=== PATIENT | female | born 1940 | race Caucasian/White ===

== ENCOUNTER → 2016-08-29 | Outpatient (CLI) | payer MEDICARE, OTHER ==
[~2016-08-29] MED LIST: /MOXI40TA PO; ALB2.5NEB INH; ASPI325T PO; ASPI81CH PO; ASPI81TA7 PO; ATOR1TAB21 PO; CLOP75TA2 PO; COMBAER6 INH; COMBRESP INH; FLUT1SPR2; IPRA2IN INH; IPRASOL4 INH; LOVE1INJ SC; PRAM0.252 PO; PRAV20TA2 PO; PRED10TA2 PO; PROL60SO SC; RIZA10TA4 PO; SYMB16INH INH; TOPIPOW3 OR; TRAZ50TA4 PO; TYLE650T30 PO; VITA400C29 PO
--- NOTE | 2016-09-04 23:18 | SLEEPCENT ---
DATE OF PROCEDURE: 08/29/2016 REFERRING PHYSICIAN: Dr. Morales INTERPRETATION: Nocturnal polysomnography was performed for the evaluation of sleep apnea syndrome symptoms consisting of excessive daytime sleepiness, snoring, gasping respirations, and nonrestorative sleep. She also has a comorbidity of hypertension. A total of 6 hours and 23 minutes of data was reviewed with 254.5 minutes of sleep identified. Sleep latency was 3 minutes. Rapid eye movement (REM) latency was 72 minutes. No slow wave sleep was identified. Sleep efficiency was decreased at 67%. EKG showed normal sinus rhythm with an average heart rate of 72 beats per minute. Speeding and slowing was noted surrounding some respiratory events. No epileptiform discharge observed. There were 12 respiratory events observed of 10 seconds in duration or longer for an apnea-hypopnea index (AHI) of 2.8. The events were predominantly obstructive hypopnea-apneas. Respiratory event related arousal (RERA) index was 5.0, giving a total respiratory disturbance index (RDI) of 7.8. Mean oxygen saturation for the study was 95% with a minimum recorded value of 93%. Arousal index was 10.1. Periodic limb movement index was 0. It should be noted the study was done on 3 liters by nasal cannula. IMPRESSION: Obstructive sleep apnea (G47.33), mild and determined by RDI. Some of the obstructive events may have been blunted by her use of 3 liters by nasal cannula during the study. RECOMMENDATIONS: Recommend consideration of return to the sleep disorder center for determination of pressure therapy. I would recommend a discussion with the patient prior to this intervention given the nature of her disease predominantly determined by RERA. Edited 09/04/2016 [facility]
== END ==
LOC: M SLEEP 19:40
PROVIDERS: ATTEND Internal Medicine Pulmonary Disease
DX: G47.33 Obstructive sleep apnea (adult) (pediatric) (principal)

== ENCOUNTER 2016-10-07 18:21 | Inpatient (IN) | payer MEDICARE, OTHER ==
[~2016-10-07] VITALS: Ht 154.9 cm; Wt 41.4 kg
[2016-10-07] MEDS ORDERED: MULT1TAB18 PO (18:40)
[2016-10-07] MEDS ORDERED: methylPREDNISolone INJ 125 MG/2 ML VIAL (J2930) IV ONE (18:45)
[2016-10-07 18:56] LABS: BASO % 0.4 % (0.0-1.0); EOS # 0.1 K/mm3 (0.0-0.50); EOS % 0.8 % (0.0-3.0); LARGE UNSTAINED CELL # 0.1 K/mm3 (0.0-0.4); LARGE UNSTAINED CELL % 1.1 % (0.0-4.0); LYMPH # 1.2 K/mm3 (1.5-4.5); LYMPH % 9.4 % (24.0-44.0); MEAN CORPUSCULAR HGB CONC 31.2 g/dl (32.0-36.5); MEAN CORPUSCULAR VOLUME 96.2 fl (80.0-96.0); MONO # 0.8 K/mm3 (0.0-0.8); MONO % 6.6 % (0.0-5.0); NEUTROPHILS # 9.4 K/mm3 (1.8-7.7); NEUTROPHILS % 81.8 % (36.0-66.0); PLATELET COUNT, AUTOMATED 255 k/mm3 (150-450); RED CELL DISTRIBUTION WIDTH 12.5 % (11.5-14.5); WHITE BLOOD COUNT 11.5 K/mm3 (4.0-10.0)
[2016-10-07 19:23] LABS: ABG BASE EXCESS 7.4 (-2.0-2.0); ABG PARTIAL PRESSURE CO2 57.4 mmHg (35.0-45.0); ABG PARTIAL PRESSURE O2 72.8 mmHg (75.0-100.0); ABG STANDARD HCO3 31.1 MEQ/L (22.0-26.0); ABG TOTAL CO2 35.7 MEQ/L (23.0-31.0)
[2016-10-07 19:25] LABS: ANION GAP 4 MEQ/L (8-16); BLOOD UREA NITROGEN 14 MG/DL (7-18); CARBON DIOXIDE LEVEL 40 MEQ/L (21-32); CHLORIDE LEVEL 97 MEQ/L (98-107); CREATININE FOR GFR 0.86 MG/DL (0.55-1.02); GLOMERULAR FILTRATION RATE > 60.0 (>39); GLUCOSE, FASTING 105 MG/DL (83-110); POTASSIUM SERUM 4.7 MEQ/L (3.5-5.1); SODIUM LEVEL 141 MEQ/L (136-145)
[2016-10-07] MEDS: IPRATROPIUM 0.5MG/ALBUTEROL 2.5MG INH SOL UD 3ML (DUONEB)(J7620) NEB SCH ×2 (19:27→20:41)
--- NOTE | 2016-10-07 19:39 | REP ---
PORTABLE CHEST X-RAY: REASON: Dyspnea and cough. COMPARISON: 01/21/2016 The technique utilized in obtaining the radiograph has magnified the cardiac silhouette and accentuated the interstitial markings. The basilar interstitial markings have increased compared to the prior exam with evidence of Amalia B lines. Semiupright portable can not assess for pulmonary vascular redistribution. Cardiomegaly is suspected status quo. The osseous structures are unchanged. IMPRESSION: CHF. Signed by Jose Alejandro Smith DO 10/09/2016 03:43 P
[2016-10-07] MEDS ORDERED: LevoFLOXacin IV 750 MG in APPROPRIATE DILUENT 1 EA IV ONE (20:45)
[2016-10-07] MEDS ORDERED: ASPI81TAEC PO (22:45)
[2016-10-07] MEDS ORDERED: PRAV20TA2 PO (22:45)
[2016-10-07] MEDS ORDERED: TIOT18INH INH (22:45)
[2016-10-07] MEDS ORDERED: CALC1TAB30 PO (22:45)
[2016-10-07] MEDS ORDERED: MOME50SP (22:45)
[2016-10-07] MEDS ORDERED: CLOP75TA2 PO (22:45)
[2016-10-08] VITALS (7 sets, daily range): BP systolic 108–155; BP diastolic 52–80; PULSE 103
[2016-10-08] MEDS ORDERED: SLF 3 ML SYR IV PRN (00:45)
[2016-10-08] MEDS: IPRATROPIUM 0.5MG/ALBUTEROL 2.5MG INH SOL UD 3ML (DUONEB)(J7620) NEB PRN ×2 (01:31→18:01)
--- NOTE | 2016-10-08 01:38 | HPEPDOC ---
General Date of Admission Oct 07, 2016 at 23:02 Attending Physician: JODI FONTENOT MD Chief Complaint The patient is a 76-year-old female admitted with a reason for visit of Copd Exacerbation. Source: Patient Exam Limitations: No limitations Timing/Duration: Day(s) (3) Severity: Severe History of Present Illness Thais Castro is a 76 year old woman with a history of CHF, COPD, and NSTEMI who presents with three days of shortness of breath and chest pressure. She is normally able to walk to the end of her driveway with the use of her oxygen at home, but recently she can't walk across the room without getting short of breath. She states that it started to get worse after visiting her yesterday in the hospital (getting treated for PNA). She has been coughing up meier/yellow sputum. She states that she has to sleep propped up and wakes at night gasping for air, but that has been an issue for a long period of time. She also states that she gets swelling in her feet from time to time but it has not happened in the past few days. She reports feeling chilled more than usual. Home Medications Scheduled (Prolia) 60 Mg/Ml Armand 60 MG SC ASDIRECTED (Reported) TWICE A YEAR; SEEMS LIKE IT WAS GIVEN IN MAY (Multi Vitamin) 1 Tab Tab 1 TAB PO DAILY (Reported) (Calcium 500+D 500-200 mg-Unit) 1 Tab Tab 1 TAB PO DAILY (Reported) Aspirin (Aspirin EC) 81 Mg Tabec 81 MG PO DAILY (Reported) Budesonide/Formoterol (Symbicort 160-4.5 Mcg/Act) 60 Puff/Inhaler Aers 1 PUFF INH BID (Reported) Clopidogrel Bisulfate (Clopidogrel) 75 Mg Tab 75 MG PO DAILY (Reported) Mometasone Furoate Monohydrate (Nasonex) 120 [place]/17 Gm Naspr 1 SPRAY NA BID ( Reported) Pramipexole Dihydrochloride (Pramipexole Dihydrochlori) 0.25 Mg Tab 0.25 MG PO QHS (Reported) Pravastatin Sodium (Pravastatin Sodium) 20 Mg Tab 20 MG PO QHS (Reported) Tiotropium [place] Monohydrate (Spiriva Handihaler) 5 Inhalation/Inhaler Powd 1 INHALATION INH DAILY (Reported) Trazodone HCl (Trazodone HCl) 50 Mg Tab 25 MG PO QHS (Reported) Scheduled PRN Albuterol/Ipratropium (Ipratropium [place]/Albut 0.5-2.5 (3) mg/3Ml) 1 Armand Armand 1 ARMAND INH Q4H PRN PRN SHORTNESS OF BREATH (Reported) Albuterol/Ipratropium (Combivent Respimat 20-100 Mcg/Act) 1 Aer Aer 1 PUFF INH QID PRN PRN SHORTNESS OF BREATH (Reported) Rizatriptan Benzoate (Rizatriptan Benzoate Odt) 10 Mg Tab 10 MG PO ASDIRECTED PRN PRN MIGRAINE (Reported) Allergies Coded Allergies: No Known Drug Allergy (Verified Allergy, Unknown, 09/22/13) Past Medical History Medical History COPD, on 3L nasal cannula at home History of migraines Osteoporosis Chronic anemia Restless leg syndrome Generalized anxiety disorder Surgical History No prior surgeries Family History Father had emphysema (smoker) Mother of AL Two brothers of AL Sister of AL Social History * Smoker: former Smoker (56 pack years) Alcohol: Denies Drugs: denies Recent Travel/Sick Contacts: Reports: Recent sick contacts ( (PNA)) Psychosocial History: No pertinent psych hx 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 No recollection of working with toxic materials or asbestos. Denies use of alcohol and recreational drug use. Review of Symptoms Constitutional: Reports: Chills, Denies: Fever Eyes: Reports: Vision change (more blurry in the past 3 years) ENT: Reports: Head Aches (chronic migranes) Skin: Denies: Lesions, Rash Pulmonary: Reports: Cough, Dyspnea Cardiovascular: Reports: Other Symptoms (Chest pressure ), Denies: Chest Pain, Palpitations Gastrointestinal: Denies: Abdominal Pain, Constipation, Diarrhea, Hematochezia , Melena, Nausea, Vomiting Genitourinary: Denies: Hematuria Neurological: Denies: Numbness, Weakness Psych: Reports: Mood Normal Physical Examination General Exam: Positive: Alert, Cooperative, Mild Distress Eye Exam: Positive: EOMI, PERRLA ENT Exam: Positive: Atraumatic, Other ENT (Dry mucuous membranes) Neck Exam: Negative: JVD Chest Exam: Positive: Rhonchi (Bilateral upper lobes, middle right lobe) Heart Exam: Positive: Tachycardic, Negative: Gallops, Murmurs, Rubs Abdomen Exam: Positive: Normal bowel sounds, Negative: Tenderness Extremity Exam: Positive: Normal pulses, Negative: Tenderness Skin Exam: Positive: Nl turgor and temperature, Negative: Rash Neuro Exam: Positive: Normal Tone, Sensation Intact Psych Exam: Positive: Mental status NL Vital Signs Vital Signs Date Time Temp Pulse Resp B/P Pulse Ox O2 Delivery O2 Flow Rate FiO2 10/08/16 00:15 98.6 98 18 140/76 96 Nasal Cannula 3 Laboratory Data Labs 24H Laboratory Tests 2 10/07/16 18:33: Anion Gap 4L, B-Type Natriuretic Peptide 16.9, White Blood Count 11.5H, Red Blood Count 4.03, Hemoglobin 12.1, Hematocrit 38.8, Mean Corpuscular Volume 96.2H, Mean Corpuscular Hemoglobin 30.0, Mean Corpuscular Hemoglobin Concent 31.2L, Red Cell Distribution Width 12.5, Platelet Count 255, Neutrophils (%) ( Auto) 81.8H, Lymphocytes (%) (Auto) 9.4L, Monocytes (%) (Auto) 6.6H, Eosinophils (%) (Auto) 0.8, Basophils (%) (Auto) 0.4, Neutrophils # (Auto) 9.4H , Lymphocytes # (Auto) 1.2L, Monocytes # (Auto) 0.8, Eosinophils # (Auto) 0.1, Basophils # (Auto) 0.0, Blood Urea Nitrogen 14, Creatinine 0.86, Sodium Level 141, Potassium Level 4.7, Chloride Level 97L, Carbon Dioxide Level 40H, Calcium Level 10.0, Total Creatine Kinase 55, Creatine Kinase MB 3.6, Creatine Kinase MB Relative Index 6.54H, Glomerular Filtration Rate > 60.0, Large Unclassified Cells # 0.1, Large Unclassified Cells % 1.1, Troponin I < 0.02 10/07/16 19:09: Arterial Blood pH 7.390, Arterial Blood Partial Pressure CO2 57.4H, Arterial Blood Partial Pressure O2 72.8L, Arterial Blood Total CO2 35.7H, Arterial Blood HCO3 34.0H, Arterial Blood Base Excess 7.4H, Arterial Blood Oxygen Saturation 93.8L, Blood Gas Bicarbonate Standard 31.1H 10/07/16 19:25: Lactic Acid Level 2.1*H CBC/BMP Laboratory Tests 10/07/16 18:33 Calcium Level 10.0, Total Creatine Kinase 55, Red Blood Count 4.03, Mean Corpuscular Volume 96.2 H, Mean Corpuscular Hemoglobin 30.0, Mean Corpuscular Hemoglobin Concent 31.2 L, Red Cell Distribution Width 12.5, Neutrophils (%) ( Auto) 81.8 H, Lymphocytes (%) (Auto) 9.4 L, Monocytes (%) (Auto) 6.6 H, Eosinophils (%) (Auto) 0.8, Basophils (%) (Auto) 0.4, Neutrophils # (Auto) 9.4 H , Lymphocytes # (Auto) 1.2 L, Monocytes # (Auto) 0.8, Eosinophils # (Auto) 0.1, Basophils # (Auto) 0.0 Microbiology Microbiology 10/07/16 Blood Culture, Received Pending 10/07/16 Blood Culture, Received Pending Problems (1) COPD exacerbation Status: Acute Problem Text: Oxygen administered 3L NC at 96%. Respiratory panel ordered. Nebulizers Q4 with Q2 PRN. Will also put her on scheduled steroids. Antibiotics started empirically for PNA. Continue on home doses of Symbicort, Fluticosone. (2) Leukocytosis Status: Acute Problem Text: Patient has an elevated WBC count and an elevated lactic acidosis. Rocephin empirically for PNA. Sputum culture and gram stain are pending. (3) CHF (congestive heart failure) Status: Chronic Problem Text: Patient is not showing signs of fluid overload. Will continue to monitor clinically. (4) History of non-ST elevation myocardial infarction (NSTEMI) Status: Chronic Problem Text: EKG did not show any new signs of AL, cardiac markers were not elevated. Will follow up with serial cardiac markers to rule out AL. Continue home doses of ASA, clopidogrel, lovenox. (5) Lactic acidosis Status: Acute (6) Hypertension Status: Acute Problem Text: Likely due to increased work of breathing and stress. Will continue to monitor and treat appropriately. (7) Migraines Status: Chronic Problem Text: Continue home dose of Rizatriptan. (8) Restless leg syndrome Status: Chronic Problem Text: Continue home dose of pramipexole. (9) Age related osteoporosis Status: Chronic Problem Text: On Prolia Q6 months Plan / VTE VTE Prophylaxis Ordered?: Yes (Lovenox) GME ATTESTATION GME ATTESTATION My preceptor for this patient encounter was physically present in the building during the encounter and was fully available. As needed, all aspects of the patient interview, examination, medical decision making process, and medical care plan development were reviewed and approved by the preceptor. Preceptor is aware and concurs with the plan as stated in the body of this note and will attest to such by his/her cosignature. JULISA TAO DO Oct 08, 2016 01:07
[2016-10-08] MEDS: IPRATROPIUM 0.5MG/ALBUTEROL 2.5MG INH SOL UD 3ML (DUONEB)(J7620) NEB SCH ×6 (03:46→23:23)
[2016-10-08] MEDS: PRAMIPEXOLE 0.25 MG TAB PO SCH ×2 (04:06→21:27)
[2016-10-08] MEDS: cefTRIAXone SOD 1 GM in D5W MINI-BAG PLUS 50 ML IV SCH (04:06)
[2016-10-08] MEDS: traZODone 25MG PER 1/2 TABLET PO SCH ×2 (04:06→20:14)
[2016-10-08] MEDS: PRAVASTATIN 20 MG TAB PO SCH ×2 (04:06→20:15)
[2016-10-08 05:04] LABS: MEAN CORPUSCULAR HEMOGLOBIN 30.9 pg (27.0-33.0); MEAN CORPUSCULAR VOLUME 96.3 fl (80.0-96.0); RED CELL DISTRIBUTION WIDTH 12.4 % (11.5-14.5); WHITE BLOOD COUNT 9.7 K/mm3 (4.0-10.0)
[2016-10-08 05:27] LABS: ANION GAP 4 MEQ/L (8-16); BLOOD UREA NITROGEN 16 MG/DL (7-18); CALCIUM LEVEL 8.7 MG/DL (8.8-10.2); CARBON DIOXIDE LEVEL 36 MEQ/L (21-32); CHLORIDE LEVEL 98 MEQ/L (98-107); CREATININE FOR GFR 0.93 MG/DL (0.55-1.02); GLOMERULAR FILTRATION RATE > 60.0 (>39); GLUCOSE, FASTING 198 MG/DL (83-110); POTASSIUM SERUM 4.2 MEQ/L (3.5-5.1); SODIUM LEVEL 138 MEQ/L (136-145)
[2016-10-08] MEDS: SLF 3 ML SYR IV SCH ×3 (06:16→21:29)
[2016-10-08] MEDS: methylPREDNISolone INJ 125 MG/2 ML VIAL (J2930) IV SCH ×2 (06:16→17:18)
[2016-10-08] MEDS: TIOTROPIUM INHALER/CAPSULE (SPIRIVA) INH SCH (07:55)
[2016-10-08] MEDS: SYMBICORT 160/4.5MCG INHALER 6GM INH SCH ×2 (07:55→20:29)
--- NOTE | 2016-10-08 08:42 | ECGEPIP ---
Stationary ECG Study [facility] - ED Test Date: 2016-10-07 Pat Name: LORRAINE VAZQUEZ Department: Room: [place] [address] Gender: F Director Of Community Services: sophia : 1940 Requested By: Glenis Ramos Order Number: [id number] Reading MD: Glenis Ramos Measurements Intervals [place] Rate: 94 P: 82 NC: 176 QRS: 48 QRSD: 92 T: 35 QT: 335 QTc: 419 Interpretive Statements SINUS RHYTHM INCOMPLETE RIGHT BUNDLE BRANCH BLOCK ANTEROSEPTAL MYOCARDIAL INFARCTION, OF INDETERMINATE AGE PRIOR ATRIAL FIBRILLATION AND MORE PRONOUNCED STT CHANGES 01/23/16 Electronically Signed On 10-08-2016 8:42:08 EDT by Glenis Ramos
[2016-10-08] MEDS ORDERED: ENOXAPARIN 40 MG/0.4 ML SYRINGE (J1650) SC SCH (09:00)
[2016-10-08] MEDS: ENOXAPARIN 30 MG/0.3 ML SYR (J1650) SC SCH (09:13)
[2016-10-08] MEDS: ASPIRIN 81 MG ENTERIC TAB PO SCH (09:14)
[2016-10-08] MEDS: FLUTICASONE PROP 0.05% NASAL SPRAY 16 GM (FLONASE) SCH ×2 (09:14→21:29)
[2016-10-08] MEDS: MULTIVITAMINS/MINERALS THERAP 1 TAB PO SCH (09:14)
[2016-10-08] MEDS: CLOPIDOGREL 75 MG TAB PO SCH (09:14)
[2016-10-08] MEDS: CALCIUM/VITAMIN D 500 MG TAB PO SCH (09:14)
[2016-10-09] MEDS: cefTRIAXone SOD 1 GM in D5W MINI-BAG PLUS 50 ML IV SCH ×2 (00:09→23:45)
[2016-10-09] MEDS: IPRATROPIUM 0.5MG/ALBUTEROL 2.5MG INH SOL UD 3ML (DUONEB)(J7620) NEB SCH ×6 (03:14→23:39)
[2016-10-09] MEDS: RIZATRIPTAN MLT 10 MG TAB PO PRN (04:03)
[2016-10-09 04:45] VITALS: BP 133/69
[2016-10-09] MEDS: methylPREDNISolone INJ 125 MG/2 ML VIAL (J2930) IV SCH ×2 (05:14→17:13)
[2016-10-09] MEDS: SLF 3 ML SYR IV SCH ×3 (05:15→23:45)
[2016-10-09 05:34] LABS: MEAN CORPUSCULAR HEMOGLOBIN 31.1 pg (27.0-33.0); MEAN CORPUSCULAR HGB CONC 32.6 g/dl (32.0-36.5); MEAN CORPUSCULAR VOLUME 95.3 fl (80.0-96.0); RED CELL DISTRIBUTION WIDTH 12.6 % (11.5-14.5); WHITE BLOOD COUNT 12.8 K/mm3 (4.0-10.0)
[2016-10-09 05:50] LABS: ANION GAP 6 MEQ/L (8-16); BLOOD UREA NITROGEN 25 MG/DL (7-18); CALCIUM LEVEL 8.6 MG/DL (8.8-10.2); CARBON DIOXIDE LEVEL 36 MEQ/L (21-32); CHLORIDE LEVEL 101 MEQ/L (98-107); CREATININE FOR GFR 0.72 MG/DL (0.55-1.02); GLOMERULAR FILTRATION RATE > 60.0 (>39); GLUCOSE, FASTING 154 MG/DL (83-110); POTASSIUM SERUM 4.4 MEQ/L (3.5-5.1); SODIUM LEVEL 143 MEQ/L (136-145)
[2016-10-09] MEDS: TIOTROPIUM INHALER/CAPSULE (SPIRIVA) INH SCH (07:15)
[2016-10-09] MEDS: SYMBICORT 160/4.5MCG INHALER 6GM INH SCH ×2 (07:15→19:54)
[2016-10-09 08:00] VITALS: BP 165/76
[2016-10-09] MEDS: MULTIVITAMINS/MINERALS THERAP 1 TAB PO SCH (09:30)
[2016-10-09] MEDS: CALCIUM/VITAMIN D 500 MG TAB PO SCH (09:30)
[2016-10-09] MEDS: ASPIRIN 81 MG ENTERIC TAB PO SCH (09:30)
[2016-10-09] MEDS: CLOPIDOGREL 75 MG TAB PO SCH (09:30)
[2016-10-09] MEDS: ENOXAPARIN 30 MG/0.3 ML SYR (J1650) SC SCH (09:31)
[2016-10-09] MEDS: FLUTICASONE PROP 0.05% NASAL SPRAY 16 GM (FLONASE) SCH ×2 (10:12→20:12)
--- NOTE | 2016-10-09 11:10 | IPN ---
DATE: 10/09/2016 Patient is seen and examined at the bedside. Chart has been reviewed. Patient still complains of some shortness of breath, better today than it was yesterday. Still with dyspnea on exertion with difficulty ambulating due to shortness of breath. No cough. No fever. No chills. No chest pain, pressure or tightness. Temperature 96.8, pulse 87, respiratory rate 18, blood pressure 165/76, 96% on 3 liters nasal cannula. Generally, awake, alert and oriented times three. Speaks in full sentences. No jugular venous distention (JVD). No use of respiratory accessory muscles. Able to speak in full sentences with no difficulty. Face is symmetric. No facial asymmetry. Tongue is midline. No cervical lymphadenopathy or thyromegaly. Lungs diminished bilateral rhonchi and wheezing. Heart S1 and S2, sinus rhythm. Abdomen is soft, nontender, nondistended. Positive bowel sounds. Extremities have no pitting edema. LABORATORY DATA: White count 12.8, hemoglobin 10, hematocrit 31, platelet count 235. Sodium 143, potassium 4.4, chloride 101, bicarb 36, BUN 25, creatinine 0.72, glucose 154, lactic acid 1.6. ASSESSMENT/PLAN: This is a 76-year-old female with history of chronic obstructive pulmonary disease (COPD) on home oxygen 2 liters nasal cannula, migraines, osteoporosis, chronic anemia, restless legs, generalized anxiety disorder who presents to the emergency room with worsening shortness of breath, unable to walk 5-10 feet without difficulty, admitted for COPD exacerbation. BNP was 19. Chest x-ray showed baseline interstitial markings are increased. 1. Acute COPD exacerbation. IV Solu-Medrol, antibiotics, nebulizer treatments, supplemental oxygen, keep titration above 88%. Blood culture is negative. Respiratory panel is negative. 2. Congestive heart failure (CHF), ejection fraction of 35% on previous echo January 2016. 3. Systolic dysfunction and diastolic dysfunction secondary to ischemic cardiomyopathy with moderate tricuspid regurg and moderate pulmonary hypertension, PA pressure of 40-50 mmHg. Patient will be started on Lasix 40 mg IV every 6 hours, net negative diuresis of 1-2 liters daily, fluid restriction, strict intake and output and daily weights. Repeat 2D echo. 4. History of paroxysmal atrial fibrillation. Currently sinus rhythm. Not on anticoagulation. Patient is currently on aspirin. Follows with Dr. Morales as an outpatient. Patient will need anticoagulation. Follows with Dr. Morales as an outpatient. Patient had an abnormal , will need anticoagulation. 5. Abnormal EKG with T wave inversions. Continue on aspirin and Plavix for now. Add statins. Check liver function tests and hyperlipidemia pattern. [facility]
[2016-10-09] MEDS: FUROSEMIDE 40 MG/4 ML VIAL (J1940) IV SCH ×3 (11:16→23:45)
[2016-10-09] MEDS: IPRATROPIUM 0.5MG/ALBUTEROL 2.5MG INH SOL UD 3ML (DUONEB)(J7620) NEB PRN (14:02)
[2016-10-09 16:00] VITALS: BP 168/68
--- NOTE | 2016-10-09 17:16 | ECGEPIP ---
Stationary ECG Study [facility] Test Date: 2016-10-09 Pat Name: LORRAINE VAZQUEZ Department: Room: [place] [address] Gender: F Freelance Writer: DANIELLE : 1940 Requested By: CINTHYA Dunn Order Number: [id number] Reading MD: Armando Joel Measurements Intervals [place] Rate: 89 P: 84 [place]: 167 QRS: 41 QRSD: 85 T: 32 QT: 356 QTc: 434 Interpretive Statements SINUS RHYTHM POSSIBLE RIGHT VENTRICULAR CONDUCTION DELAY ANTEROSEPTAL MYOCARDIAL INFARCTION, OF INDETERMINATE AGE Nonspecific ST-T wave abnormalities Electronically Signed On 10-09-2016 17:15:56 EDT by Armando Joel
[2016-10-09 17:49] VITALS: BP 134/71
[2016-10-09 19:03] LABS: CALCIUM LEVEL 9.5 MG/DL (8.8-10.2); CREATININE FOR GFR 1.03 MG/DL (0.55-1.02); GLOMERULAR FILTRATION RATE 55.8 (>39); POTASSIUM SERUM 3.6 MEQ/L (3.5-5.1)
[2016-10-09] MEDS: PRAVASTATIN 20 MG TAB PO SCH (20:12)
[2016-10-09] MEDS: traZODone 25MG PER 1/2 TABLET PO SCH (20:12)
[2016-10-09] MEDS: PRAMIPEXOLE 0.25 MG TAB PO SCH (20:12)
[2016-10-09 22:00] VITALS: BP 145/65
[2016-10-10] MEDS: IPRATROPIUM 0.5MG/ALBUTEROL 2.5MG INH SOL UD 3ML (DUONEB)(J7620) NEB SCH ×8 (03:17→23:23)
[2016-10-10] MEDS: SLF 3 ML SYR IV SCH ×3 (05:37→20:08)
[2016-10-10] MEDS: FUROSEMIDE 40 MG/4 ML VIAL (J1940) IV SCH ×4 (05:37→22:57)
[2016-10-10] MEDS: methylPREDNISolone INJ 125 MG/2 ML VIAL (J2930) IV SCH ×2 (05:38→17:24)
[2016-10-10 05:55] LABS: MEAN CORPUSCULAR HEMOGLOBIN 30.3 pg (27.0-33.0); MEAN CORPUSCULAR HGB CONC 31.7 g/dl (32.0-36.5); MEAN CORPUSCULAR VOLUME 95.6 fl (80.0-96.0); RED CELL DISTRIBUTION WIDTH 12.5 % (11.5-14.5); WHITE BLOOD COUNT 12.2 K/mm3 (4.0-10.0)
[2016-10-10 06:00] VITALS: BP 133/63
[2016-10-10 06:09] LABS: ANION GAP 5 MEQ/L (8-16); BLOOD UREA NITROGEN 34 MG/DL (7-18); CALCIUM LEVEL 8.8 MG/DL (8.8-10.2); CARBON DIOXIDE LEVEL 39 MEQ/L (21-32); CHLORIDE LEVEL 95 MEQ/L (98-107); CREATININE FOR GFR 0.96 MG/DL (0.55-1.02); GLOMERULAR FILTRATION RATE > 60.0 (>39); GLUCOSE, FASTING 128 MG/DL (83-110); POTASSIUM SERUM 3.7 MEQ/L (3.5-5.1); SODIUM LEVEL 139 MEQ/L (136-145)
--- NOTE | 2016-10-10 07:59 | REP ---
Portable chest, single AP view, the patient upright, sitting: Comparison is 10/07/2016. There are no focal infiltrates. There are no pleural effusions. The lung garcia otherwise clear. Cardiac size is borderline enlarged. There is thoracic scoliosis convex right. Impression: No acute cardiopulmonary findings. Signed by Butch Tolbert MD 10/10/2016 07:50 A
[2016-10-10] MEDS: RIZATRIPTAN MLT 10 MG TAB PO PRN (08:01)
[2016-10-10] MEDS: FLUTICASONE PROP 0.05% NASAL SPRAY 16 GM (FLONASE) SCH ×2 (08:01→20:08)
[2016-10-10] MEDS: ENOXAPARIN 30 MG/0.3 ML SYR (J1650) SC SCH (08:01)
[2016-10-10] MEDS: ASPIRIN 81 MG ENTERIC TAB PO SCH (08:01)
[2016-10-10] MEDS: CALCIUM/VITAMIN D 500 MG TAB PO SCH (08:01)
[2016-10-10] MEDS: CLOPIDOGREL 75 MG TAB PO SCH (08:01)
[2016-10-10] MEDS: MULTIVITAMINS/MINERALS THERAP 1 TAB PO SCH (08:01)
[2016-10-10] MEDS: TIOTROPIUM INHALER/CAPSULE (SPIRIVA) INH SCH (08:06)
[2016-10-10] MEDS: SYMBICORT 160/4.5MCG INHALER 6GM INH SCH ×2 (08:06→19:26)
--- NOTE | 2016-10-10 08:13 | ECHO ---
DATE OF PROCEDURE: 10/09/2016 REFERRING PROVIDER: Dr. Liza Pirnce PATIENT LOCATION: Room 3215 REASON FOR THE ECHOCARDIOGRAM: Shortness of breath. 2D MEASUREMENTS: IVS: 0.9 cm LV: 3.9 cm LVPW: 0.9 cm LA: 2.9 cm IVC: 1.95 cm DOPPLER MEASUREMENTS: Peak velocity across the aortic valve: 1.7 m/s Peak velocity across the LVOT: 1.4 m/s Mitral E 0.63, mitral A 0.97 with a ratio of 0.8 Maximum tricuspid valve velocity 3.1 m/s 2D COMMENTS: 1. Normal left ventricular size, wall thickness and normal global left ventricular systolic function. The estimated left ventricular systolic ejection fraction is 65%. 2. Normal left atrium. Normal right atrium and right ventricle. 3. The atrial septum appeared to be normal without evidence of defect or shunt. 4. The aortic root appeared to be normal. 5. No pericardial effusion seen. 6. Mildly calcified aortic valve with normal leaflet excursion. Mildly calcified mitral annulus with normal anterior mitral valve leaflet motion. Normal tricuspid valve. The pulmonic valve and proximal pulmonary artery branches were not well visualized. 7. The inferior vena cava was normal in size, central venous pressure is most likely normal. DOPPLER: It detects trace to mild mitral regurgitation and moderate tricuspid regurgitation. The calculated pulmonary artery systolic pressure varies between 40-50 mmHg. Abnormal relaxation pattern was noted across the mitral valve leaflets as well as the mitral valve annulus consistent with grade 1 left ventricular diastolic dysfunction. IMPRESSION: 1. Normal global left ventricular systolic function. There were features of left ventricular diastolic dysfunction manifested by abnormal relaxation. 2. Aortic valve sclerosis without stenosis or aortic regurgitation. 3. Mitral annulus calcification with trace to mild mitral regurgitation. 4. Moderate tricuspid regurgitation with moderate pulmonary hypertension. Copy To: Dr. Liza Prince
--- NOTE | 2016-10-10 10:05 | IPN ---
DATE OF SERVICE: 10/10/2016 Patient is seen and examined at the bedside. Chart has been reviewed this morning. Patient states that her breathing has improved. She still has a nonproductive cough. No fever or chills. Denies any chest pain, pressure, or tightness. She states that she is able to ambulate from the bed to the bathroom with a little bit more ease, but still with some dyspnea on returning. Vitals: Temperature 97.3, pulse 85, respiratory rate 20, blood pressure 133/63, 99% on 3 liters nasal cannula. Generally, awake, alert and oriented times three. Answering questions appropriately. Mild use of respiratory accessory muscles. No jugular venous distention. Able to speak in full sentences with no difficulty. Lungs diminished. Occasional wheezing. Bilateral rhonchi improved from yesterday. Prolonged expiration. Heart S1 and S2, sinus rhythm. Abdomen is soft, nontender, nondistended. Positive bowel sounds. Extremities have no pitting edema. LABORATORY DATA: CBC, metabolic panel 10/10 have been reviewed. Microbiology - RSV panel is negative. Sputum culture is pending. Two sets of blood cultures are pending. 10/07 chest x-ray congestive heart failure (CHF). 10/10 chest x-ray shows no acute cardiopulmonary findings. Lungs garcia are clear. ASSESSMENT/PLAN: This is a 76-year-old female with history of moderate tricuspid regurgitation PA pressure 40-50 with grade 1 left ventricular diastolic dysfunction mild mitral regurgitation presents with shortness of breath found to have audible wheezing. Patient was admitted for chronic obstructive pulmonary artery disease (COPD), home oxygen dependent 2 liters nasal cannula, migraines, osteoporosis, chronic anemia, restless leg syndrome, generalized anxiety presents to the emergency room with worsening shortness of breath unable to walk 5-10 feet without difficulty, admitted for COPD exacerbation and BNP of 19 and chest x-ray showed baseline interstitial markings are increased. Patient was admitted for: 1. Acute chronic obstructive pulmonary artery disease (COPD) exacerbation currently on IV Solu-Medrol, antibiotics, nebulizer treatments, supplemental oxygen, keep oxygen saturation above 88%, titrate to 88 to 92%. Blood culture is negative. Respiratory panel is negative. Sputum culture is still pending. Chest x-ray is clear. 2. Congestive heart failure (CHF), ejection fraction (EF) currently is 65% with moderate tricuspid regurgitation. PA pressure of 40-50 mmHg, grade 1 left ventricular diastolic dysfunction with moderate pulmonary hypertension. Patient has been diuresed with Lasix IV every 6 hours, net negative for the past 3 days with significant improvement in her breathing. Will continue with Lasix diuresis until euvolemic, strict intake and output and daily weights, and fluid restriction. 3. Chronic hypoxic respiratory failure. At baseline oxygen level. 4. History of paroxysmal atrial fibrillation. Currently in sinus rhythm with nonspecific ST-T changes and age indeterminate anterior septal myocardial infarction (VT). Currently on no anticoagulation. Follows with [facility] as outpatient. Currently on aspirin 81 mg daily. 5. Abnormal EKG with anterior septal changes, chronic. Currently on aspirin and Plavix. Patient followup with Dr. Morales.
[2016-10-10] MEDS: IPRATROPIUM 0.5MG/ALBUTEROL 2.5MG INH SOL UD 3ML (DUONEB)(J7620) NEB PRN (10:09)
[2016-10-10 14:00] VITALS: BP 131/79
[2016-10-10 18:44] LABS: CALCIUM LEVEL 10.3 MG/DL (8.8-10.2); CREATININE FOR GFR 1.26 MG/DL (0.55-1.02); GLOMERULAR FILTRATION RATE 44.2 (>39)
[2016-10-10] MEDS: PRAVASTATIN 20 MG TAB PO SCH (20:07)
[2016-10-10] MEDS: traZODone 25MG PER 1/2 TABLET PO SCH (20:08)
[2016-10-10] MEDS: PRAMIPEXOLE 0.25 MG TAB PO SCH (20:08)
[2016-10-10 20:45] VITALS: BP 168/78
[2016-10-10] MEDS: cefTRIAXone SOD 1 GM in D5W MINI-BAG PLUS 50 ML IV SCH (23:09)
[2016-10-11] MEDS: SLF 3 ML SYR IV SCH ×3 (05:15→23:18)
[2016-10-11] MEDS: FUROSEMIDE 40 MG/4 ML VIAL (J1940) IV SCH (05:15)
[2016-10-11 05:25] VITALS: BP 158/74
[2016-10-11] MEDS: methylPREDNISolone INJ 125 MG/2 ML VIAL (J2930) IV SCH (05:27)
[2016-10-11 05:41] LABS: MEAN CORPUSCULAR HEMOGLOBIN 31.9 pg (27.0-33.0); MEAN CORPUSCULAR HGB CONC 33.8 g/dl (32.0-36.5); MEAN CORPUSCULAR VOLUME 94.3 fl (80.0-96.0); RED CELL DISTRIBUTION WIDTH 12.4 % (11.5-14.5); WHITE BLOOD COUNT 9.9 K/mm3 (4.0-10.0)
[2016-10-11 05:53] LABS: CALCIUM LEVEL 8.9 MG/DL (8.8-10.2); CREATININE FOR GFR 1.08 MG/DL (0.55-1.02); GLOMERULAR FILTRATION RATE 52.8 (>39); POTASSIUM SERUM 3.6 MEQ/L (3.5-5.1)
[2016-10-11] MEDS: RIZATRIPTAN MLT 10 MG TAB PO PRN (05:53)
[2016-10-11] MEDS: ENOXAPARIN 30 MG/0.3 ML SYR (J1650) SC SCH (08:12)
[2016-10-11] MEDS: FLUTICASONE PROP 0.05% NASAL SPRAY 16 GM (FLONASE) SCH ×2 (08:12→20:40)
[2016-10-11] MEDS: LOSARTAN 25 MG TAB PO SCH (08:13)
[2016-10-11] MEDS: FUROSEMIDE 40 MG TAB PO SCH (08:13)
[2016-10-11] MEDS: MULTIVITAMINS/MINERALS THERAP 1 TAB PO SCH (08:13)
[2016-10-11] MEDS: CALCIUM/VITAMIN D 500 MG TAB PO SCH (08:13)
[2016-10-11] MEDS: CLOPIDOGREL 75 MG TAB PO SCH (08:13)
[2016-10-11] MEDS: ASPIRIN 81 MG ENTERIC TAB PO SCH (08:13)
[2016-10-11] MEDS: SYMBICORT 160/4.5MCG INHALER 6GM INH SCH ×2 (08:28→20:12)
[2016-10-11] MEDS: IPRATROPIUM 0.5MG/ALBUTEROL 2.5MG INH SOL UD 3ML (DUONEB)(J7620) NEB SCH ×5 (08:29→23:33)
--- NOTE | 2016-10-11 08:51 | IPN ---
DATE: 10/11/2016 Patient seen and examined at the bedside. Chart has been reviewed. This morning, the patient has no complaints of dyspnea, unchanged from prior, chest pain, pressure, tightness, lightheadedness. She was net negative for the past 4 days. Current weight is 42.2 kg with admission weight of 43.998 kg. She denies any chest pain, pressure, tightness, lightheadedness or dizziness. Temperature 97, pulse 79, respiratory rate 19, blood pressure 158/74, 99% on 3 liters nasal cannula. Generally, the patient is awake, alert, oriented times three, no use of respiratory accessory muscles. No jugular venous distention. Able to speak in full sentences with no difficulty. Lungs are diminished. Occasional wheezing. Prolonged expiration. Heart: S1, S2, sinus rhythm. Abdomen is soft, nontender, nondistended. Positive bowel sounds times four quadrants. Extremities: Have no pitting edema. White count 9.9, hemoglobin 12, hematocrit 36, platelet count 283. Sodium 137, potassium 3.6, chloride 89, bicarbonate 42, BUN 39, creatinine 1.08, glucose 136, respiratory panel negative. Sputum culture pending. Two sets of blood cultures negative. Repeat chest x-ray on 10/10/2016: No acute cardiopulmonary findings. Previous chest x-ray 10/07/2016: Congestive heart failure. ASSESSMENT AND PLAN: This is a 76-year-old female with a history of moderate tricuspid regurgitation, PA pressure 40-50 mmHg, grade 1 left ventricle diastolic dysfunction, mild mitral regurgitation, presents with shortness of breath, found to have audible wheezing, admitted for chronic obstructive pulmonary disease (COPD) exacerbation, on two liters home oxygen, migraines, osteoporosis, chronic anemia, restless leg, generalized anxiety, presents to the emergency room (ER) with worsening shortness of breath, unable to walk 5-10 feet without difficulty. The patient was admitted for COPD exacerbation with BNP of 19. Chest x-ray showed baseline interstitial markings were increased. She was given IV Lasix with complete resolution of Amalia B lines on chest x-ray and no acute infiltrate. IMPRESSION: 1. Acute chronic obstructive pulmonary disease exacerbation. Currently on IV Solu-Medrol, antibiotics, nebulizer treatment, supplemental oxygen to keep saturations 88-92%. Blood cultures negative. Respiratory panel is negative. Sputum culture is not finalized. Chest x-ray is clear. Will start tapering down the steroids and transition to oral prednisone, possible discharge Wednesday or Wednesday. 2. Congestive heart failure. Ejection fraction (EF) of 65%, decompensated, with moderate tricuspid regurgitation, PA pressure of 40-50 mmHg, grade 1 diastolic dysfunction with moderate pulmonary hypertension. The patient has been diuresed with Lasix IV every 6 hours with net negative for the past 4 days with significant improvement in her breathing. We will discontinue the patient's intravenous Lasix and transition to oral Lasix once daily. Continue with strict intake and output, daily weights and fluid restriction. Cardiac rehabilitation as outpatient. 3. Chronic hypoxic respiratory failure. At baseline, oxygen level at 3 liters nasal cannula. 4. History of paroxysmal atrial fibrillation. Currently in sinus rhythm with nonspecific ST changes and age indeterminate anteroseptal myocardial infarction ([place]). Currently on aspirin. Patient followup with [facility].
[2016-10-11] MEDS ORDERED: FUROSEMIDE 40 MG/4 ML VIAL (J1940) IV SCH (09:00)
[2016-10-11] MEDS: TIOTROPIUM INHALER/CAPSULE (SPIRIVA) INH SCH (11:10)
[2016-10-11 14:00] VITALS: BP 102/55
[2016-10-11] MEDS: predniSONE 20 MG TAB PO SCH ×2 (16:38→20:40)
[2016-10-11 19:05] LABS: CALCIUM LEVEL 10.3 MG/DL (8.8-10.2); CREATININE FOR GFR 1.77 MG/DL (0.55-1.02); GLOMERULAR FILTRATION RATE 29.9 (>39); POTASSIUM SERUM 3.5 MEQ/L (3.5-5.1)
[2016-10-11 20:13] VITALS: O2SAT 97
[2016-10-11] MEDS: traZODone 25MG PER 1/2 TABLET PO SCH (20:39)
[2016-10-11] MEDS: PRAMIPEXOLE 0.25 MG TAB PO SCH (20:39)
[2016-10-11] MEDS: PRAVASTATIN 20 MG TAB PO SCH (20:40)
[2016-10-11 22:00] VITALS: BP 125/82
[2016-10-11] MEDS: cefTRIAXone SOD 1 GM in D5W MINI-BAG PLUS 50 ML IV SCH (23:18)
[2016-10-12] MEDS: IPRATROPIUM 0.5MG/ALBUTEROL 2.5MG INH SOL UD 3ML (DUONEB)(J7620) NEB SCH ×3 (02:55→11:34)
[2016-10-12 06:00] VITALS: BP 124/70
[2016-10-12] MEDS: SLF 3 ML SYR IV SCH (06:05)
[2016-10-12 06:23] LABS: MEAN CORPUSCULAR HEMOGLOBIN 31.5 pg (27.0-33.0); MEAN CORPUSCULAR HGB CONC 33.3 g/dl (32.0-36.5); MEAN CORPUSCULAR VOLUME 94.6 fl (80.0-96.0); RED CELL DISTRIBUTION WIDTH 12.5 % (11.5-14.5); WHITE BLOOD COUNT 8.6 K/mm3 (4.0-10.0)
[2016-10-12 06:30] LABS: CALCIUM LEVEL 9.2 MG/DL (8.8-10.2); CREATININE FOR GFR 1.36 MG/DL (0.55-1.02); GLOMERULAR FILTRATION RATE 40.5 (>39); POTASSIUM SERUM 3.6 MEQ/L (3.5-5.1)
[2016-10-12] MEDS: FLUTICASONE PROP 0.05% NASAL SPRAY 16 GM (FLONASE) SCH (08:45)
[2016-10-12] MEDS: ASPIRIN 81 MG ENTERIC TAB PO SCH (08:46)
[2016-10-12 08:47] VITALS: BP 124/70
[2016-10-12] MEDS: LOSARTAN 25 MG TAB PO SCH (08:47)
[2016-10-12] MEDS: FUROSEMIDE 40 MG TAB PO SCH (08:48)
[2016-10-12] MEDS: MULTIVITAMINS/MINERALS THERAP 1 TAB PO SCH (08:48)
[2016-10-12] MEDS: CALCIUM/VITAMIN D 500 MG TAB PO SCH (08:48)
[2016-10-12] MEDS: CLOPIDOGREL 75 MG TAB PO SCH (08:48)
[2016-10-12] MEDS: predniSONE 20 MG TAB PO SCH (08:48)
[2016-10-12] MEDS: ENOXAPARIN 30 MG/0.3 ML SYR (J1650) SC SCH (08:49)
[2016-10-12] MEDS: TIOTROPIUM INHALER/CAPSULE (SPIRIVA) INH SCH (08:54)
[2016-10-12] MEDS: SYMBICORT 160/4.5MCG INHALER 6GM INH SCH (08:54)
[2016-10-12] MEDS ORDERED: PRED10TA PO (10:34)
[2016-10-14] MEDS ORDERED: LASI40TA PO (12:45)
== END 2016-10-12 13:44 | disposition home health service (06) | DRG 190 ==
LOC: M ED 19:57 → M ED INP 23:02 → M PCU 10-08 00:22 → M MSPAV 10-09 17:47
PROVIDERS: ADMIT Internal Medicine; ATTEND General Practice
DX: J44.1 Chronic obstructive pulmonary disease with (acute) exacerbation (principal); I50.33 Acute on chronic diastolic (congestive) heart failure; E87.2 Acidosis; J96.11 Chronic respiratory failure with hypoxia; I25.2 Old myocardial infarction; Z79.899 Other long term (current) drug therapy; Z79.82 Long term (current) use of aspirin; G25.81 Restless legs syndrome; F41.1 Generalized anxiety disorder; D64.9 Anemia, unspecified; I10 Essential (primary) hypertension; M81.0 Age-related osteoporosis without current pathological fracture; G43.909 Migraine, unspecified, not intractable, without status migrainosus; I36.0 Nonrheumatic tricuspid (valve) stenosis; I48.0 Paroxysmal atrial fibrillation; I25.5 Ischemic cardiomyopathy; I27.2 Other secondary pulmonary hypertension

== ENCOUNTER 2016-10-24 05:52 | Emergency (ER) | payer MEDICARE, OTHER ==
[~2016-10-24] VITALS: Ht 154.9 cm; Wt 44.5 kg
[~2016-10-24 05:52] MED LIST changes: +ASPI81TAEC PO; +CALC1TAB30 PO; +LASI40TA PO; +MOME50SP; +MULT1TAB18 PO; +PRED10TA PO; +TIOT18INH INH
[2016-10-24 06:30] LABS: BASO # 0.1 K/mm3 (0.0-0.2); BASO % 0.8 % (0.0-1.0); EOS # 0.2 K/mm3 (0.0-0.50); EOS % 2.5 % (0.0-3.0); LARGE UNSTAINED CELL # 0.1 K/mm3 (0.0-0.4); LARGE UNSTAINED CELL % 1.3 % (0.0-4.0); LYMPH # 1.3 K/mm3 (1.5-4.5); LYMPH % 15.4 % (24.0-44.0); MEAN CORPUSCULAR HEMOGLOBIN 31.9 pg (27.0-33.0); MEAN CORPUSCULAR HGB CONC 32.8 g/dl (32.0-36.5); MEAN CORPUSCULAR VOLUME 97.3 fl (80.0-96.0); MONO # 0.4 K/mm3 (0.0-0.8); MONO % 5.7 % (0.0-5.0); NEUTROPHILS # 5.5 K/mm3 (1.8-7.7); NEUTROPHILS % 74.3 % (36.0-66.0); PLATELET COUNT, AUTOMATED 273 k/mm3 (150-450); RED CELL DISTRIBUTION WIDTH 13.3 % (11.5-14.5); WHITE BLOOD COUNT 7.4 K/mm3 (4.0-10.0)
[2016-10-24 06:55] LABS: ANION GAP 6 MEQ/L (8-16); BLOOD UREA NITROGEN 30 MG/DL (7-18); CALCIUM LEVEL 8.5 MG/DL (8.8-10.2); CARBON DIOXIDE LEVEL 37 MEQ/L (21-32); CHLORIDE LEVEL 97 MEQ/L (98-107); CREATININE FOR GFR 1.09 MG/DL (0.55-1.02); GLOMERULAR FILTRATION RATE 52.2 (>39); GLUCOSE, FASTING 177 MG/DL (83-110); POTASSIUM SERUM 3.8 MEQ/L (3.5-5.1); SODIUM LEVEL 140 MEQ/L (136-145)
[2016-10-24] MEDS ORDERED: IPRATROPIUM 0.5MG/ALBUTEROL 2.5MG INH SOL UD 3ML (DUONEB)(J7620) NEB ONE (08:30)
[2016-10-24 12:23] VITALS: BP 111/61
--- NOTE | 2016-10-25 14:41 | ECGEPIP ---
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
--- NOTE | 2016-10-25 14:42 | ECGEPIP ---
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
--- NOTE | 2016-10-26 15:33 | REP ---
REASON: Chest pain. COMPARISON: 10/10/2016. The technique utilized in obtaining the radiograph has magnified the cardiac silhouette and accentuated the interstitial markings. Cardiomediastinal silhouette is unchanged. There is cardiomegaly. There is no significant change in the appearance of the lung garcia. Fibrotic changes particularly in the lung bases status quo. The osseous structures are unchanged. IMPRESSION: Cardiomegaly. No significant change from the prior exam. No evidence of acute cardiopulmonary disease. Signed by Jose Alejandro Smith DO 10/26/2016 05:12 P
== END 2016-10-24 13:29 | disposition home or self-care (01) ==
LOC: EDBD 05:52 → EDSEX 05:52 → M ED 07:51
DX: R07.89 Other chest pain (principal); I51.7 Cardiomegaly; I50.9 Heart failure, unspecified; I25.2 Old myocardial infarction; J44.9 Chronic obstructive pulmonary disease, unspecified; Z87.891 Personal history of nicotine dependence; Z79.899 Other long term (current) drug therapy

== ENCOUNTER 2016-12-06 19:04 | Emergency (ER) | payer MEDICARE, OTHER ==
[~2016-12-06] VITALS: Ht 154.9 cm; Wt 49.0 kg
[~2016-12-06 19:04] MED LIST changes: +ASPI1TAB15 PO; -ASPI81TA7 PO; -PRED10TA PO; +TRAZ50TA11 PO; -TRAZ50TA4 PO
[2016-12-06] MEDS ORDERED: OXYMETAZOLINE NASAL SPRAY (AFRIN) ONE (20:15)
[2016-12-06 22:12] VITALS: BP 139/71
--- NOTE | 2016-12-07 09:10 | REP ---
CHEST, TWO VIEWS: Two views of the chest are performed. There is no evidence of acute infiltrate, with scattered interstitial fibrotic changes and hyperinflation compatible with COPD. There is mild cardiomegaly. There is calcification of the thoracic aorta. The mediastinal silhouette is unchanged. There is curvature of the thoracic spine convex to the right with mild degenerative changes. There are couple of mild compression deformities of mid thoracic vertebral bodies which are of indeterminate age. IMPRESSION: Chronic findings of COPD. Mild cardiomegaly. Two mild compression deformities of mid thoracic vertebral bodies of indeterminate age. Signed by Butch Cruz MD 12/07/2016 08:16 P
== END 2016-12-06 22:21 | disposition home or self-care (01) ==
LOC: M ED 20:27
DX: R09.81 Nasal congestion (principal); I51.7 Cardiomegaly; J44.9 Chronic obstructive pulmonary disease, unspecified; Z99.81 Dependence on supplemental oxygen; Z87.891 Personal history of nicotine dependence; Z79.51 Long term (current) use of inhaled steroids; Z79.899 Other long term (current) drug therapy

== ENCOUNTER 2017-01-03 17:46 | Emergency (ER) | payer MEDICARE, OTHER ==
[~2017-01-03] VITALS: Ht 154.9 cm; Wt 43.6 kg
[2017-01-03 17:47] VITALS: BP 146/80
[2017-01-03] MEDS ORDERED: ANUSOL HC 25MG SUPP PR ONE ×2 (18:30→21:15)
[2017-01-03] MEDS ORDERED: NS 500 ML IV ONE (18:30)
[2017-01-03 18:44] LABS: BASO % 0.6 % (0.0-1.0); EOS # 0.1 K/mm3 (0.0-0.50); EOS % 1.9 % (0.0-3.0); LARGE UNSTAINED CELL # 0.2 K/mm3 (0.0-0.4); LARGE UNSTAINED CELL % 2.2 % (0.0-4.0); LYMPH # 1.3 K/mm3 (1.5-4.5); LYMPH % 17.4 % (24.0-44.0); MEAN CORPUSCULAR HGB CONC 33.1 g/dl (32.0-36.5); MEAN CORPUSCULAR VOLUME 96.7 fl (80.0-96.0); MONO # 0.5 K/mm3 (0.0-0.8); MONO % 7.3 % (0.0-5.0); NEUTROPHILS # 4.8 K/mm3 (1.8-7.7); NEUTROPHILS % 70.6 % (36.0-66.0); PLATELET COUNT, AUTOMATED 273 k/mm3 (150-450); RED CELL DISTRIBUTION WIDTH 13.1 % (11.5-14.5); WHITE BLOOD COUNT 6.7 K/mm3 (4.0-10.0)
[2017-01-03 19:19] LABS: ALBUMIN 4.3 GM/DL (3.2-5.2); ALBUMIN/GLOBULIN RATIO 1.48 (1.00-1.93); ALKALINE PHOSPHATASE 43 U/L (45-117); ALT/SGPT 23 U/L (12-78); ANION GAP 6 MEQ/L (8-16); AST/SGOT 14 U/L (15-37); BILIRUBIN,DIRECT < 0.1 MG/DL (0.0-0.2); BILIRUBIN,TOTAL 0.2 MG/DL (0.2-1.0); BLOOD UREA NITROGEN 15 MG/DL (7-18); CALCIUM LEVEL 9.6 MG/DL (8.8-10.2); CARBON DIOXIDE LEVEL 40 MEQ/L (21-32); CHLORIDE LEVEL 96 MEQ/L (98-107); GLOMERULAR FILTRATION RATE 39.1 (>39); GLUCOSE, FASTING 90 MG/DL (83-110); POTASSIUM SERUM 3.8 MEQ/L (3.5-5.1); SODIUM LEVEL 142 MEQ/L (136-145); TOTAL PROTEIN 7.2 GM/DL (6.4-8.2)
[2017-01-03] MEDS ORDERED: ISOVUE-370 76% 100ML VIAL (Q9967) As Ordered ONE (19:33)
--- NOTE | 2017-01-03 20:10 | REPUSA ---
HISTORY: RECTAL PAIN. TECHNIQUE: Axial CT imaging of abdomen and pelvis with sagittal and coronal reformatted imaging, with intravenous contrast enhancement. DLP= 206.2 mGy-cm. FINDINGS: Lung bases demonstrate emphysematous changes with no mass or consolidation seen. Bone wind ows demonstrate levoscoliosis of the dorsolumbar spine with degenerative bony changes in the spine a nd hips but without acute fracture or destructive bony lesions seen. The liver, biliary tree, gallbladder, spleen, pancreas, and adrenal glands are normal. There are terry cified plaques in the abdominal aorta with no evidence of aneurysm or retroperitoneal mass or hemorrh age. Both kidneys function without evidence of mass lesion, calcification, or obstruction and the ur eters and urinary bladder are normal. There are fluid-filled distended loops of small bowel, consistent with nonspecific ileus. There is n o evidence of bowel wall mass lesion, obstruction, perforation, inflammatory reaction, or diverticuli tis seen on the non-bowel contrast examination. No abdominal wall hernia is seen. No other pelvic m ass lesions or abnormal peritoneal fluid collections are seen. IMPRESSION: 1. Fluid-filled distention of multiple loops of small bowel consistent with small bowel ileus. The remainder the bowel gas pattern is normal with no evidence of bowel mass lesion, obstruct ion, perforation, or evidence of diverticulitis. 2. No other pathologic mass or abnormal fluid collection seen in the abdomen and pelvis. Clinical correlation and followup imaging may be warranted as clinically indicated.
[2017-01-03] MEDS ORDERED: IPRATROPIUM 0.5MG/ALBUTEROL 2.5MG INH SOL UD 3ML (DUONEB)(J7620) NEB ONE (20:15)
[2017-01-03] MEDS ORDERED: LIDOCAINE 2% 5ML JELLY UROJET TOP PRN (21:15)
[2017-01-03] MEDS ORDERED: ANUS2.5C2 PR (22:30)
[2017-01-03] MEDS ORDERED: ACETAMINOPHEN TAB 650MG DOSE (2X325MG) PO ONE (22:45)
--- NOTE | 2017-01-04 19:02 | ECGEPIP ---
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
== END 2017-01-03 23:09 | disposition left against medical advice (07) ==
LOC: M ED 17:46
DX: K62.89 Other specified diseases of anus and rectum (principal); K62.5 Hemorrhage of anus and rectum; I50.9 Heart failure, unspecified; G43.909 Migraine, unspecified, not intractable, without status migrainosus; M40.209 Unspecified kyphosis, site unspecified; Z87.891 Personal history of nicotine dependence; Z79.82 Long term (current) use of aspirin; Z79.899 Other long term (current) drug therapy
CPT/HCPCS: 74177; 80048; 80076; 83605; 83690; 85025; 93005; 93041; 94640; 99284; Q9967

== ENCOUNTER 2017-01-10 17:47 | Emergency (ER) | payer MEDICARE, OTHER ==
[~2017-01-10] VITALS: Ht 152.4 cm; Wt 43.9 kg
[~2017-01-10 17:47] MED LIST changes: +ANUS2.5C2 PR
[2017-01-10 18:57] LABS: BASO % 0.5 % (0.0-1.0); EOS # 0.1 K/mm3 (0.0-0.50); EOS % 1.6 % (0.0-3.0); LARGE UNSTAINED CELL # 0.1 K/mm3 (0.0-0.4); LARGE UNSTAINED CELL % 1.6 % (0.0-4.0); LYMPH # 1.2 K/mm3 (1.5-4.5); LYMPH % 18.5 % (24.0-44.0); MEAN CORPUSCULAR HEMOGLOBIN 31.7 pg (27.0-33.0); MEAN CORPUSCULAR HGB CONC 33.4 g/dl (32.0-36.5); MEAN CORPUSCULAR VOLUME 94.9 fl (80.0-96.0); MONO # 0.4 K/mm3 (0.0-0.8); MONO % 7.1 % (0.0-5.0); NEUTROPHILS # 4.3 K/mm3 (1.8-7.7); NEUTROPHILS % 70.8 % (36.0-66.0); PLATELET COUNT, AUTOMATED 276 k/mm3 (150-450); RED CELL DISTRIBUTION WIDTH 13.1 % (11.5-14.5)
[2017-01-10 19:05] LABS: INR 0.93
[2017-01-10 19:24] LABS: ALBUMIN 4.5 GM/DL (3.2-5.2); ALBUMIN/GLOBULIN RATIO 1.55 (1.00-1.93); ALKALINE PHOSPHATASE 40 U/L (45-117); ALT/SGPT 25 U/L (12-78); ANION GAP 6 MEQ/L (8-16); AST/SGOT 15 U/L (15-37); BILIRUBIN,DIRECT 0.1 MG/DL (0.0-0.2); BILIRUBIN,TOTAL 0.3 MG/DL (0.2-1.0); BLOOD UREA NITROGEN 17 MG/DL (7-18); CALCIUM LEVEL 9.5 MG/DL (8.8-10.2); CARBON DIOXIDE LEVEL 38 MEQ/L (21-32); CHLORIDE LEVEL 91 MEQ/L (98-107); CREATININE FOR GFR 0.99 MG/DL (0.55-1.02); GLOMERULAR FILTRATION RATE 58.4 (>39); GLUCOSE, FASTING 118 MG/DL (83-110); SODIUM LEVEL 135 MEQ/L (136-145); TOTAL PROTEIN 7.4 GM/DL (6.4-8.2)
[2017-01-10] MEDS ORDERED: [UNRECOGNIZED DRUG - CODE] (20:14)
[2017-01-10 20:17] VITALS: BP 137/66
--- NOTE | 2017-01-11 07:40 | REP ---
PORTABLE CHEST: AP portable view of the chest is performed and compared to a prior study of 10/24/2016. Chronic fibrotic changes bilaterally appear stable with no definite acute infiltrate. There is mild cardiomegaly unchanged. There is calcification of the thoracic aorta. The mediastinal silhouette is unchanged. There is curvature of the thoracolumbar spine convex to the left with degenerative changes. IMPRESSION: Stable chronic findings and mild cardiomegaly. No definite acute infiltrate. Signed by Butch Cruz MD 01/11/2017 01:10 P
--- NOTE | 2017-01-12 08:49 | ECGEPIP ---
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
== END 2017-01-10 20:27 | disposition home or self-care (01) ==
LOC: M ED 17:47
DX: J44.9 Chronic obstructive pulmonary disease, unspecified (principal); R05 Cough; I10 Essential (primary) hypertension; D64.9 Anemia, unspecified; F41.9 Anxiety disorder, unspecified; F17.210 Nicotine dependence, cigarettes, uncomplicated; Z79.82 Long term (current) use of aspirin; Z79.899 Other long term (current) drug therapy

== ENCOUNTER 2017-02-17 19:43 | Emergency (ER) | payer MEDICARE, OTHER ==
[~2017-02-17] VITALS: Ht 154.9 cm; Wt 100.0 kg
[~2017-02-17 19:43] MED LIST changes: +[UNRECOGNIZED DRUG - CODE]
[2017-02-17] MEDS ORDERED: methylPREDNISolone INJ 125 MG/2 ML VIAL (J2930) IV ONE (20:15)
[2017-02-17] MEDS ORDERED: ALBUTEROL SULFATE 2.5 MG/0.5 ML INH NEB SOLN NEB ONE (20:15)
[2017-02-17] MEDS ORDERED: FUROSEMIDE 40 MG/4 ML VIAL (J1940) IV ONE (20:15)
[2017-02-17 20:36] VITALS: O2SAT 99
[2017-02-17 20:42] LABS: BASO % 0.9 % (0.0-1.0); EOS # 0.2 K/mm3 (0.0-0.50); EOS % 2.7 % (0.0-3.0); LARGE UNSTAINED CELL # 0.1 K/mm3 (0.0-0.4); LARGE UNSTAINED CELL % 1.8 % (0.0-4.0); LYMPH # 1.4 K/mm3 (1.5-4.5); LYMPH % 21.2 % (24.0-44.0); MEAN CORPUSCULAR HEMOGLOBIN 31.4 pg (27.0-33.0); MEAN CORPUSCULAR HGB CONC 32.6 g/dl (32.0-36.5); MEAN CORPUSCULAR VOLUME 96.5 fl (80.0-96.0); MONO # 0.5 K/mm3 (0.0-0.8); MONO % 7.9 % (0.0-5.0); NEUTROPHILS % 65.6 % (36.0-66.0); PLATELET COUNT, AUTOMATED 301 k/mm3 (150-450); RED CELL DISTRIBUTION WIDTH 13.5 % (11.5-14.5); WHITE BLOOD COUNT 6.2 K/mm3 (4.0-10.0)
[2017-02-17 21:07] LABS: ALBUMIN/GLOBULIN RATIO 1.38 (1.00-1.93); BILIRUBIN,DIRECT 0.1 MG/DL (0.0-0.2); BILIRUBIN,TOTAL 0.3 MG/DL (0.2-1.0); CREATININE FOR GFR 1.3 MG/DL (0.55-1.02); GLOMERULAR FILTRATION RATE 42.6 (>39); POTASSIUM SERUM 4.3 MEQ/L (3.5-5.1); TOTAL PROTEIN 6.9 GM/DL (6.4-8.2)
--- NOTE | 2017-02-17 21:08 | REP ---
Clinical: Dyspnea and cough. Comparison: 01/10/2017. Findings: Mediastinum and cardiac silhouette are within normal limits and stable. Lung garcia demonstrate diffuse chronic interstitial changes without obvious consolidation, effusion, or pneumothorax. Mild interstitial edema cannot be excluded. Skeletal structures demonstrate stable osteopenia and degenerative changes. Impression: Stable chronic changes. Very minimal interstitial edema cannot be excluded and should be correlated clinically. Signed by Edmond Mcclain MD 02/17/2017 09:00 P
[2017-02-17 21:12] VITALS: BP 161/74
--- NOTE | 2017-02-19 06:03 | ECGEPIP ---
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 RBBB SIMILAR TO 01/10/17 Electronically Signed On 02-19-2017 6:03:05 EDT by Moises Morrow
== END 2017-02-17 22:37 | disposition home or self-care (01) ==
LOC: M ED 21:35
DX: J44.9 Chronic obstructive pulmonary disease, unspecified (principal); J81.0 Acute pulmonary edema; I50.9 Heart failure, unspecified; G43.909 Migraine, unspecified, not intractable, without status migrainosus; M40.00 Postural kyphosis, site unspecified; Z95.5 Presence of coronary angioplasty implant and graft; Z87.891 Personal history of nicotine dependence; Z79.82 Long term (current) use of aspirin; Z79.899 Other long term (current) drug therapy; Z79.52 Long term (current) use of systemic steroids
CPT/HCPCS: 71010; 80048; 80076; 83605; 83880; 85025; 93005; 93041; 94760; 96374; 96375; 99284; J1940; J2930

== ENCOUNTER 2017-03-03 20:07 | Emergency (ER) | payer MEDICARE, OTHER ==
[~2017-03-03] VITALS: Ht 154.9 cm; Wt 45.5 kg
[2017-03-03] MEDS ORDERED: IPRATROPIUM 0.5MG/ALBUTEROL 2.5MG INH SOL UD 3ML (DUONEB)(J7620) NEB ONE (20:45)
[2017-03-03 20:56] LABS: BASO % 0.4 % (0.0-1.0); EOS # 0.1 K/mm3 (0.0-0.50); EOS % 1.7 % (0.0-3.0); LARGE UNSTAINED CELL # 0.1 K/mm3 (0.0-0.4); LARGE UNSTAINED CELL % 1.3 % (0.0-4.0); LYMPH % 12.9 % (24.0-44.0); MEAN CORPUSCULAR HEMOGLOBIN 31.8 pg (27.0-33.0); MEAN CORPUSCULAR HGB CONC 32.7 g/dl (32.0-36.5); MEAN CORPUSCULAR VOLUME 97.2 fl (80.0-96.0); MONO # 0.4 K/mm3 (0.0-0.8); NEUTROPHILS # 5.7 K/mm3 (1.8-7.7); NEUTROPHILS % 77.7 % (36.0-66.0); PLATELET COUNT, AUTOMATED 260 k/mm3 (150-450); RED CELL DISTRIBUTION WIDTH 13.5 % (11.5-14.5); WHITE BLOOD COUNT 7.3 K/mm3 (4.0-10.0)
[2017-03-03 21:19] LABS: ALBUMIN 4.1 GM/DL (3.2-5.2); ALBUMIN/GLOBULIN RATIO 1.37 (1.00-1.93); ALKALINE PHOSPHATASE 46 U/L (45-117); ALT/SGPT 31 U/L (12-78); ANION GAP 6 MEQ/L (8-16); AST/SGOT 17 U/L (15-37); BILIRUBIN,DIRECT < 0.1 MG/DL (0.0-0.2); BILIRUBIN,TOTAL 0.3 MG/DL (0.2-1.0); BLOOD UREA NITROGEN 15 MG/DL (7-18); CALCIUM LEVEL 9.3 MG/DL (8.8-10.2); CARBON DIOXIDE LEVEL 37 MEQ/L (21-32); CHLORIDE LEVEL 100 MEQ/L (98-107); CREATININE FOR GFR 1.32 MG/DL (0.55-1.02); GLOMERULAR FILTRATION RATE 41.9 (>39); GLUCOSE, FASTING 102 MG/DL (83-110); POTASSIUM SERUM 4.4 MEQ/L (3.5-5.1); SODIUM LEVEL 143 MEQ/L (136-145); TOTAL PROTEIN 7.1 GM/DL (6.4-8.2)
--- NOTE | 2017-03-03 21:30 | REPUSA ---
CLINICAL HISTORY: Dyspnea. COMMENTS: PA and lateral views of the chest: The lungs are hyperinflated as demonstrated by diaphragmatic flattening and increased retrosternal cl ear space. The findings are compatible with COPD. The heart is normal in size and appearance. The mediastinum and hilar regions are unremarkable. There is no acute infiltrate, mass or effusion. The soft tissues, diaphragms and bony thorax are unremarka ble. Multiple old fractures are noted involving several mid thoracic bodies. Left nipple shadow is se en. IMPRESSION: COPD. NO EVIDENCE FOR PNEUMONIA. Thank you for your kind referral of this patient.
[2017-03-03] MEDS ORDERED: SODIUM CHLORIDE NASAL 0.65% SPRAY BTL (OCEAN) PRN (21:45)
[2017-03-03 22:01] VITALS: BP 144/65
[2017-03-03 22:08] VITALS: O2SAT 100
--- NOTE | 2017-03-04 07:42 | ECGEPIP ---
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
== END 2017-03-03 22:52 | disposition home or self-care (01) ==
LOC: M ED 20:07
DX: R06.02 Shortness of breath (principal); J44.9 Chronic obstructive pulmonary disease, unspecified; F41.1 Generalized anxiety disorder; G43.909 Migraine, unspecified, not intractable, without status migrainosus; D64.9 Anemia, unspecified; G25.81 Restless legs syndrome; I50.9 Heart failure, unspecified; I25.2 Old myocardial infarction; Z87.891 Personal history of nicotine dependence; Z99.81 Dependence on supplemental oxygen; Z79.899 Other long term (current) drug therapy; Z79.51 Long term (current) use of inhaled steroids; Z79.82 Long term (current) use of aspirin; Z79.02 Long term (current) use of antithrombotics/antiplatelets

== ENCOUNTER 2017-03-07 12:01 | Emergency (ER) | payer MEDICARE, OTHER ==
[~2017-03-07] VITALS: Ht 154.9 cm; Wt 45.5 kg
[2017-03-07] MEDS ORDERED: ONDANSETRON 4MG/2ML VIAL (J2405) IV ONE (13:00)
[2017-03-07] MEDS ORDERED: MORPHINE 2 MG/ML 1ML SYRINGE IV ONE ×2 (13:00→14:45)
--- NOTE | 2017-03-07 13:38 | REP ---
Clinical: Cough and dyspnea . Comparison: 03/03/2017 . Findings: The mediastinum and cardiac silhouette are stable. The lung garcia demonstrate chronic stable changes without acute consolidation, effusion, or pneumothorax. Skeletal structures are intact. Impression: No acute cardiopulmonary process appreciated. Signed by Edmond Mcclain MD 03/07/2017 01:30 P
[2017-03-07 13:43] LABS: BASO % 0.4 % (0.0-1.0); EOS # 0.1 K/mm3 (0.0-0.50); EOS % 1.3 % (0.0-3.0); LARGE UNSTAINED CELL # 0.1 K/mm3 (0.0-0.4); LARGE UNSTAINED CELL % 1.8 % (0.0-4.0); LYMPH # 0.7 K/mm3 (1.5-4.5); LYMPH % 11.1 % (24.0-44.0); MEAN CORPUSCULAR HEMOGLOBIN 32.3 pg (27.0-33.0); MEAN CORPUSCULAR HGB CONC 34.1 g/dl (32.0-36.5); MEAN CORPUSCULAR VOLUME 94.8 fl (80.0-96.0); MONO # 0.4 K/mm3 (0.0-0.8); MONO % 6.8 % (0.0-5.0); NEUTROPHILS % 78.6 % (36.0-66.0); PLATELET COUNT, AUTOMATED 277 k/mm3 (150-450); WHITE BLOOD COUNT 6.3 K/mm3 (4.0-10.0)
[2017-03-07 13:51] LABS: INR 0.89
[2017-03-07 14:05] LABS: ANION GAP 6 MEQ/L (8-16); BLOOD UREA NITROGEN 11 MG/DL (7-18); CALCIUM LEVEL 9.6 MG/DL (8.8-10.2); CARBON DIOXIDE LEVEL 39 MEQ/L (21-32); CHLORIDE LEVEL 98 MEQ/L (98-107); CREATININE FOR GFR 0.86 MG/DL (0.55-1.02); GLOMERULAR FILTRATION RATE > 60.0 (>39); GLUCOSE, FASTING 126 MG/DL (83-110); POTASSIUM SERUM 3.8 MEQ/L (3.5-5.1); SODIUM LEVEL 143 MEQ/L (136-145)
[2017-03-07 14:11] LABS: ALBUMIN 4.2 GM/DL (3.2-5.2); ALBUMIN/GLOBULIN RATIO 1.17 (1.00-1.93); ALKALINE PHOSPHATASE 44 U/L (45-117); ALT/SGPT 26 U/L (12-78); AST/SGOT 12 U/L (15-37); BILIRUBIN,DIRECT < 0.1 MG/DL (0.0-0.2); BILIRUBIN,TOTAL 0.4 MG/DL (0.2-1.0); TOTAL PROTEIN 7.8 GM/DL (6.4-8.2)
--- NOTE | 2017-03-07 14:32 | REP ---
Clinical: Pain without trauma. Technique: AP, lateral, swimmers views of the thoracic spine. Findings: Osteopenia and degenerative changes are appreciated along with chronic scoliosis. Lateral view suggests a mild compression deformity of mid to lower thoracic vertebral body which may be slightly progressed from prior chest x-rays. Impression: Cannot exclude mild progression of mid to lower thoracic vertebral body compression injury. Signed by Edmond Mcclain MD 03/07/2017 02:23 P
[2017-03-07] MEDS ORDERED: IPRATROPIUM 0.5MG/ALBUTEROL 2.5MG INH SOL UD 3ML (DUONEB)(J7620) NEB ONE ×2 (14:45→19:30)
[2017-03-07] MEDS ORDERED: ISOVUE-370 76% 100ML VIAL (Q9967) As Ordered ONE (14:56)
--- NOTE | 2017-03-07 15:42 | REP ---
Clinical: Dyspnea and pleuritic chest pain . Technique: Axial contrast enhanced images from the thoracic inlet to the upper abdomen using 100 ml Isovue 370 intravenous contrast material with multiplanar re-formations. Findings: Satisfactory enhancement of the pulmonary vasculature is achieved and no filling defects are identified to suggest pulmonary embolus. Further evaluation of the mediastinum demonstrates atherosclerotic changes to the thoracic aorta and coronary arteries without aortic aneurysm/dissection or cardiomegaly. No pericardial effusion. Lung garcia demonstrate advanced COPD/emphysematous changes with minimal scattered scarring. No focal consolidation, significant nodule or mass lesion appreciated. No pleural effusion/reaction or pneumothorax. Tracheobronchial tree is patent. No adenopathy. Musculoskeletal structures without acute fracture. Mild nonacute compression fracture at T9 remains stable. Impression: 1. No evidence for pulmonary embolus. 2. Moderate/advanced COPD and emphysematous changes with scattered scarring. 3. No acute mediastinal or pleural parenchymal process. Signed by Edmond Mcclain MD 03/07/2017 03:33 P
--- NOTE | 2017-03-07 16:24 | REP ---
Clinical: Back pain. Possible acute fracture. Technique: Axial noncontrast images from C5 through L3 with coronal and sagittal re-formations. Comparison: X-rays dated 12/06/2016, 01/17/2009. Findings: Age-related osteopenia and exaggerated kyphosis is appreciated along with nonacute mild compression deformity at T9 with less than 20% loss of anterior vertebral body height. Mild degenerative changes include very subtle early marginal spurring. Spinal canal is patent. Posterior elements and spinous processes are intact. Paraspinal soft tissues are normal. Impression: Osteopenia and mild age-related degenerative changes. Nonacute mild compression deformity at T9. Signed by Edmond Mcclain MD 03/07/2017 04:16 P
[2017-03-07] MEDS ORDERED: methylPREDNISolone INJ 125 MG/2 ML VIAL (J2930) IV ONE (18:30)
[2017-03-07] MEDS ORDERED: MOXIFLOXACIN HCL 400 MG in APPROPRIATE DILUENT 1 EA IV ONE (18:30)
[2017-03-07] MEDS ORDERED: AVEL1TAB3 PO (18:31)
[2017-03-07] MEDS ORDERED: PRED20TA PO (18:31)
[2017-03-07 19:52] VITALS: BP 135/60
--- NOTE | 2017-03-08 07:58 | ECGEPIP ---
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 RBBB SIMILAR TO 03/03/17 Electronically Signed On 03-08-2017 7:57:37 EDT by Moises Morrow
== END 2017-03-07 19:54 | disposition home or self-care (01) ==
LOC: M ED 12:01
DX: S22.070A Wedge compression fracture of T9-T10 vertebra, initial encounter for closed fracture (principal); X58.XXXA Exposure to other specified factors, initial encounter; Y92.89 Other specified places as the place of occurrence of the external cause; Y93.89 Activity, other specified; Y99.8 Other external cause status; J44.0 Chronic obstructive pulmonary disease with (acute) lower respiratory infection; J44.1 Chronic obstructive pulmonary disease with (acute) exacerbation; I48.91 Unspecified atrial fibrillation; I25.10 Atherosclerotic heart disease of native coronary artery without angina pectoris; I50.9 Heart failure, unspecified; I11.0 Hypertensive heart disease with heart failure; N18.9 Chronic kidney disease, unspecified; G47.33 Obstructive sleep apnea (adult) (pediatric); M40.00 Postural kyphosis, site unspecified; Z79.899 Other long term (current) drug therapy; Z79.51 Long term (current) use of inhaled steroids; Z79.82 Long term (current) use of aspirin
CPT/HCPCS: 71010; 71275; 72072; 72128; 80048; 80076; 81001; 82550; 82553; 83605; 83880; 84443; 84484; 85025; 85610; 87040; 87086; 93005; 93041; 94640; 94760; 96374; 96375; 96376; 99285; J2280; J2405; J2930; Q9967

== ENCOUNTER 2017-04-02 18:16 | Emergency (ER) | payer MEDICARE, OTHER ==
[~2017-04-02] VITALS: Ht 157.5 cm; Wt 89.1 kg
[~2017-04-02 18:16] MED LIST changes: +AVEL1TAB3 PO; +PRED20TA PO
[2017-04-02] MEDS ORDERED: AMLO2.5T PO (18:33)
--- NOTE | 2017-04-02 19:56 | REP ---
Chest x-ray: Two views. History: Dyspnea. Comparison chest x-ray March 07, 2017. Findings: The lungs are markedly hyperinflated consistent with COPD, but free of infiltrate. Oxygen delivery tubing and EKG monitoring electrodes overlie the chest. Heart is mildly enlarged. These findings are unchanged. There are degenerative changes in the thoracic spine and there is a dextroconvex curvature as before. Impression: Marked hyperinflation consistent with COPD. Mild cardiomegaly. No acute infiltrate. Signed by Kristofer Salinas MD 04/03/2017 02:11 P
[2017-04-02] MEDS ORDERED: AUGMENTIN 875 MG TAB PO ONE (20:00)
[2017-04-02] MEDS ORDERED: dexameTHASONE 20 MG/5 ML VIAL (J1100) IV ONE (20:00)
[2017-04-02] MEDS ORDERED: OXYMETAZOLINE NASAL SPRAY (AFRIN) ONE (20:00)
[2017-04-02] MEDS: IPRATROPIUM 0.5MG/ALBUTEROL 2.5MG INH SOL UD 3ML (DUONEB)(J7620) NEB SCH ×3 (20:21→20:35)
[2017-04-02 20:25] LABS: BASO # 0.1 10^3/uL (0.0-0.2); EOS # 0.1 10^3/uL (0.0-0.50); IMMATURE GRANULOCYTE % 0.2 % (0-0); LYMPH # 0.8 10^3/uL (1.5-4.5); LYMPH % 14.9 % (24.0-44.0); MEAN CORPUSCULAR HEMOGLOBIN 31.6 pg (27.0-33.0); MEAN CORPUSCULAR HGB CONC 33.2 g/dl (32.0-36.5); MONO # 0.8 10^3/uL (0.0-0.8); MONO % 16.4 % (0.0-5.0); NEUTROPHILS # 3.4 10^3/uL (1.8-7.7); NEUTROPHILS % 65.5 % (36.0-66.0); PLATELET COUNT, AUTOMATED 228 10^3/uL (150-450); RED CELL DISTRIBUTION WIDTH 13.4 % (11.5-14.5); WHITE BLOOD COUNT 5.1 10^3/uL (4.0-10.0)
[2017-04-02 20:54] LABS: CALCIUM LEVEL 9.8 MG/DL (8.8-10.2); CREATININE FOR GFR 1.31 MG/DL (0.55-1.02); GLOMERULAR FILTRATION RATE 42.3 (>39); POTASSIUM SERUM 3.9 MEQ/L (3.5-5.1)
[2017-04-02] MEDS ORDERED: AUGM500T34 PO (21:33)
[2017-04-02] MEDS ORDERED: PRED20TA PO (21:33)
[2017-04-02 21:37] VITALS: BP 124/65
[2017-04-03] MEDS ORDERED: PRED20TA PO (23:40)
[2017-04-03] MEDS ORDERED: FURO40TA2 PO (23:40)
[2017-04-03] MEDS ORDERED: VITMTA PO (23:40)
[2017-04-03] MEDS ORDERED: SPIR12.9 INH (23:40)
[2017-04-03] MEDS ORDERED: AUGM500T34 PO (23:40)
[2017-04-03] MEDS ORDERED: TOPI50TA9 PO (23:45)
[2017-04-03] MEDS ORDERED: PRAM0.252 PO (23:45)
[2017-04-03] MEDS ORDERED: TOPI25TA10 PO (23:45)
[2017-04-03] MEDS ORDERED: TRAZ50TA11 PO (23:45)
== END 2017-04-02 21:40 | disposition home or self-care (01) ==
LOC: M ED 18:16
DX: J44.9 Chronic obstructive pulmonary disease, unspecified (principal); J01.90 Acute sinusitis, unspecified; I51.7 Cardiomegaly; I25.10 Atherosclerotic heart disease of native coronary artery without angina pectoris; I10 Essential (primary) hypertension; E78.5 Hyperlipidemia, unspecified; G43.909 Migraine, unspecified, not intractable, without status migrainosus; Z87.891 Personal history of nicotine dependence; Z98.61 Coronary angioplasty status; Z79.82 Long term (current) use of aspirin; Z79.899 Other long term (current) drug therapy

== ENCOUNTER 2017-04-03 22:11 | Inpatient (IN) | payer MEDICARE, OTHER ==
[~2017-04-03] VITALS: Ht 152.4 cm; Wt 41.0 kg
[2017-04-03] MEDS: PRAVASTATIN 20 MG TAB PO SCH (21:00)
[2017-04-03] MEDS: TOPIRAMATE (TopAMAX) 25 MG TAB PO SCH (21:00)
[~2017-04-03 22:11] MED LIST changes: +AMLO2.5T PO; +AUGM500T34 PO
[2017-04-03 22:21] LABS: ABG BASE EXCESS 1.1 (-2.0-2.0); ABG HCO3 37.7 MEQ/L (22.0-26.0); ABG PARTIAL PRESSURE O2 313.9 mmHg (75.0-100.0); ABG STANDARD HCO3 25.5 MEQ/L (22.0-26.0); ABG TOTAL CO2 42.9 MEQ/L (23.0-31.0)
[2017-04-03 22:24] LABS: ABG pH (ARTERIAL) 6.964 UNITS (7.350-7.450)
[2017-04-03] MEDS ORDERED: FUROSEMIDE 40 MG/4 ML VIAL (J1940) IV ONE (22:30)
[2017-04-03] MEDS ORDERED: IPRATROPIUM 0.5MG/ALBUTEROL 2.5MG INH SOL UD 3ML (DUONEB)(J7620) NEB ONE ×3 (22:30→23:00)
[2017-04-03 22:39] LABS: BASO % 0.1 % (0.0-1.0); IMMATURE GRANULOCYTE % 0.5 % (0-0); LYMPH # 2.6 10^3/uL (1.5-4.5); LYMPH % 24.4 % (24.0-44.0); MEAN CORPUSCULAR HEMOGLOBIN 31.6 pg (27.0-33.0); MEAN CORPUSCULAR HGB CONC 32.1 g/dl (32.0-36.5); MEAN CORPUSCULAR VOLUME 98.5 fl (80.0-96.0); MONO # 0.6 10^3/uL (0.0-0.8); NEUTROPHILS # 7.4 10^3/uL (1.8-7.7); PLATELET COUNT, AUTOMATED 308 10^3/uL (150-450); RED CELL DISTRIBUTION WIDTH 13.3 % (11.5-14.5); WHITE BLOOD COUNT 10.8 10^3/uL (4.0-10.0)
[2017-04-03] MEDS ORDERED: LORazepam 2 MG/ML VIAL (J2060) IV STA (22:43)
[2017-04-03 22:59] LABS: ANION GAP 5 MEQ/L (8-16); BLOOD UREA NITROGEN 21 MG/DL (7-18); CALCIUM LEVEL 9.4 MG/DL (8.8-10.2); CARBON DIOXIDE LEVEL 37 MEQ/L (21-32); CHLORIDE LEVEL 94 MEQ/L (98-107); CREATININE FOR GFR 1.51 MG/DL (0.55-1.02); GLOMERULAR FILTRATION RATE 35.9 (>39); GLUCOSE, FASTING 383 MG/DL (83-110); SODIUM LEVEL 136 MEQ/L (136-145)
[2017-04-03 23:05] LABS: ALBUMIN 4.3 GM/DL (3.2-5.2); ALBUMIN/GLOBULIN RATIO 1.19 (1.00-1.93); ALKALINE PHOSPHATASE 60 U/L (45-117); ALT/SGPT 37 U/L (12-78); AST/SGOT 32 U/L (15-37); BILIRUBIN,DIRECT < 0.1 MG/DL (0.0-0.2); BILIRUBIN,TOTAL 0.3 MG/DL (0.2-1.0); TOTAL PROTEIN 7.9 GM/DL (6.4-8.2)
[2017-04-03 23:06] LABS: POTASSIUM SERUM 5.2 MEQ/L (3.5-5.1)
[2017-04-03 23:26] LABS: ABG BASE EXCESS -0.1 (-2.0-2.0); ABG HCO3 31.8 MEQ/L (22.0-26.0); ABG PARTIAL PRESSURE O2 70.1 mmHg (75.0-100.0); ABG STANDARD HCO3 24.2 MEQ/L (22.0-26.0); ABG TOTAL CO2 34.9 MEQ/L (23.0-31.0)
[2017-04-03 23:27] LABS: ABG PARTIAL PRESSURE CO2 99.3 mmHg (35.0-45.0); ABG pH (ARTERIAL) 7.124 UNITS (7.350-7.450)
[2017-04-03] MEDS ORDERED: VITMTA PO (23:40)
[2017-04-03] MEDS ORDERED: PRED20TA PO (23:40)
[2017-04-03] MEDS ORDERED: FURO40TA2 PO (23:40)
[2017-04-03] MEDS ORDERED: SPIR12.9 INH (23:40)
[2017-04-03] MEDS ORDERED: AUGM500T34 PO (23:40)
[2017-04-03] MEDS ORDERED: TOPI25TA10 PO (23:45)
[2017-04-03] MEDS ORDERED: PRAM0.252 PO (23:45)
[2017-04-03] MEDS ORDERED: TRAZ50TA11 PO (23:45)
[2017-04-03] MEDS ORDERED: TOPI50TA9 PO (23:45)
[2017-04-04] VITALS (19 sets, daily range): BP systolic 98–127; BP diastolic 63–80; O2SAT 91–100
[2017-04-04] MEDS ORDERED: IPRATROPIUM 0.5MG/ALBUTEROL 2.5MG INH SOL UD 3ML (DUONEB)(J7620) NEB PRN (00:15)
[2017-04-04] MEDS ORDERED: methylPREDNISolone INJ 125 MG/2 ML VIAL (J2930) IV ONE (00:15)
[2017-04-04] MEDS ORDERED: ONDANSETRON 4MG/2ML VIAL (J2405) IV PRN (00:30)
[2017-04-04] MEDS ORDERED: GLUCOSE 4 GM CHEW TABLET PO PRN (00:30)
[2017-04-04] MEDS ORDERED: GLUCAGON FOR INJ 1 MG VIAL (J1610) SC PRN (00:30)
[2017-04-04] MEDS ORDERED: MAG SULF 1GM/100ML (MAG RUN) 1 GM in APPROPRIATE DILUENT 1 EA IV ONE (00:30)
[2017-04-04] MEDS ORDERED: ACETAMINOPHEN TAB 650MG DOSE (2X325MG) PO PRN (00:30)
[2017-04-04] MEDS ORDERED: DEXTROSE 50% 50 ML SYRINGE IV PRN (00:30)
[2017-04-04 00:50] LABS: T UPTAKE 32 % (30-39); THYROXINE (T4) 9.4 UG/DL (4.5-12.0)
[2017-04-04] MEDS: HumaLOG INSULIN (NovoLOG) PER UNIT SC SCH ×4 (00:56→17:42)
[2017-04-04] MEDS: FORMOTEROL FUMARATE 20 MCG/2 ML INHALATION SOLUTION (PERFOROMIST) INH SCH ×3 (01:24→21:59)
[2017-04-04] MEDS: BUDESONIDE 0.5 MG/2 ML INHALATION SUSPENSION INH SCH ×3 (01:24→21:59)
[2017-04-04] MEDS: AZITHROMYCIN INJ 500 MG, VIAL MATE ADAPTER 1 EACH in D5W 250 ML IV SCH (01:30)
[2017-04-04] MEDS: cefTRIAXone SOD 2 GM in D5W 50 ML IV SCH (01:33)
[2017-04-04] MEDS: IPRATROPIUM 0.5MG/ALBUTEROL 2.5MG INH SOL UD 3ML (DUONEB)(J7620) NEB SCH ×4 (02:00→19:15)
[2017-04-04 02:14] LABS: OSMOLALITY URINE 491 MOSM/KG (500-800)
[2017-04-04 02:58] LABS: ABG BASE EXCESS -0.9 (-2.0-2.0); ABG HCO3 28.2 MEQ/L (22.0-26.0); ABG PARTIAL PRESSURE O2 126.6 mmHg (75.0-100.0); ABG STANDARD HCO3 23.8 MEQ/L (22.0-26.0); ABG TOTAL CO2 30.3 MEQ/L (23.0-31.0)
[2017-04-04 03:01] LABS: ABG pH (ARTERIAL) 7.223 UNITS (7.350-7.450)
[2017-04-04 03:11] LABS: CREATININE FOR GFR 1.61 MG/DL (0.55-1.02); GLOMERULAR FILTRATION RATE 33.3 (>39); MAGNESIUM LEVEL 3.4 MG/DL (1.8-2.4); POTASSIUM SERUM 5.1 MEQ/L (3.5-5.1)
--- NOTE | 2017-04-04 04:07 | IPNPDOC ---
Text Note Date of Service The patient was seen on 04/04/17. NOTE d/w Dr Sotomayor cardiology. Likely patient's troponin elevation and LBBB 2/2 to severe respiratory distress, similar episode previously 1.5 years ago with neg cath. No need to anticoagulation as per Dr Sotomayor. Rec treating underlying pulmonary disease. VS,Fishbone, I+O VS, Fishbone, I+O Laboratory Tests 04/03/17 22:21 Red Blood Count 3.95 L, Mean Corpuscular Volume 98.5 H, Mean Corpuscular Hemoglobin 31.6, Mean Corpuscular Hemoglobin Concent 32.1, Red Cell Distribution Width 13.3, Neutrophils (%) (Auto) 69.0 H, Lymphocytes (%) (Auto) 24.4, Monocytes (%) (Auto) 6.0 H, Eosinophils (%) (Auto) 0.0, Basophils (%) ( Auto) 0.1, Neutrophils # (Auto) 7.4, Lymphocytes # (Auto) 2.6, Monocytes # (Auto ) 0.6, Eosinophils # (Auto) 0.0, Basophils # (Auto) 0.0, Calcium Level 9.4 04/04/17 01:56 Calcium Level 9.0, Total Creatine Kinase 108 Vital Signs Date Time Temp Pulse Resp B/P (MAP) Pulse Ox O2 Delivery O2 Flow Rate FiO2 04/04/17 02:21 95 BIPAP/CPAP 35 04/04/17 01:35 100.1 117 35 125/80 (95) 04/03/17 22:20 15.0 ULISES ESCUDERO MD Apr 04, 2017 04:07
[2017-04-04] MEDS: HEPARIN SOD (PORCINE) 5000 UNITS/ML VIAL SC SCH ×3 (05:33→21:51)
[2017-04-04 06:24] LABS: MEAN CORPUSCULAR HEMOGLOBIN 31.5 pg (27.0-33.0); MEAN CORPUSCULAR HGB CONC 33.2 g/dl (32.0-36.5); MEAN CORPUSCULAR VOLUME 94.8 fl (80.0-96.0); RED CELL DISTRIBUTION WIDTH 13.3 % (11.5-14.5); WHITE BLOOD COUNT 16.8 10^3/uL (4.0-10.0)
[2017-04-04 06:32] LABS: INR 0.92
[2017-04-04 06:51] LABS: ALBUMIN 3.9 GM/DL (3.2-5.2); ALBUMIN/GLOBULIN RATIO 1.15 (1.00-1.93); ALKALINE PHOSPHATASE 57 U/L (45-117); ALT/SGPT 88 U/L (12-78); ANION GAP 8 MEQ/L (8-16); AST/SGOT 81 U/L (15-37); BILIRUBIN,TOTAL 0.2 MG/DL (0.2-1.0); BLOOD UREA NITROGEN 30 MG/DL (7-18); CALCIUM LEVEL 8.7 MG/DL (8.8-10.2); CARBON DIOXIDE LEVEL 33 MEQ/L (21-32); CHLORIDE LEVEL 97 MEQ/L (98-107); CREATININE FOR GFR 1.62 MG/DL (0.55-1.02); GLOMERULAR FILTRATION RATE 33.1 (>39); GLUCOSE, FASTING 117 MG/DL (83-110); MAGNESIUM LEVEL 3.1 MG/DL (1.8-2.4); POTASSIUM SERUM 4.3 MEQ/L (3.5-5.1); SODIUM LEVEL 138 MEQ/L (136-145); TOTAL PROTEIN 7.3 GM/DL (6.4-8.2)
[2017-04-04 07:54] LABS: ABG BASE EXCESS 6.5 (-2.0-2.0); ABG HCO3 32.1 MEQ/L (22.0-26.0); ABG PARTIAL PRESSURE CO2 50.7 mmHg (35.0-45.0); ABG PARTIAL PRESSURE O2 85.2 mmHg (75.0-100.0); ABG STANDARD HCO3 30.4 MEQ/L (22.0-26.0); ABG TOTAL CO2 33.7 MEQ/L (23.0-31.0)
[2017-04-04] MEDS: methylPREDNISolone INJ 125 MG/2 ML VIAL (J2930) IV SCH ×3 (07:54→23:57)
[2017-04-04] MEDS: TIOTROPIUM INHALER/CAPSULE (SPIRIVA) INH SCH (08:00)
[2017-04-04] MEDS ORDERED: PANTOPRAZOLE 40MG INJ (PROTONIX) (C9113) IV SCH (09:00)
[2017-04-04] MEDS ORDERED: ASPIRIN 81 MG ENTERIC TAB PO SCH (09:00)
[2017-04-04] MEDS ORDERED: CLOPIDOGREL 75 MG TAB PO SCH (09:00)
[2017-04-04] MEDS ORDERED: TOPIRAMATE (TopAMAX) 25 MG TAB PO SCH (09:00)
--- NOTE | 2017-04-04 11:29 | HPE ---
DATE OF ADMISSION: 04/04/2017 PRIMARY CARE PROVIDER: Zulema Jackson. ALUMINUM POLISHER: Dr. Rust covered by Dr. Maynard. STAFFING AND SCHEDULING COORDINATOR: Dr. Morales. CHIEF COMPLAINT: Shortness of breath. HISTORY OF PRESENT ILLNESS: This is a 76-year-old female patient with underlying medical history of congestive heart failure (CHF), chronic obstructive pulmonary disease (COPD), oxygen dependent, history of non-ST segment elevation myocardial infarction (NSTEMI) secondary to severe respiratory distress, dyslipidemia, anxiety, osteoporosis, restless legs. Patient was brought to the hospital by family with progressively worsening shortness of breath. As per family, for the past couple of days patient has been having progressively worsening shortness of breath with nasal congestion and cough, having to visit the emergency room yesterday as well. Patient is still an active smoker, is on 3 liters of oxygen at home. As per family, earlier yesterday evening patient's respiration got worse, became quite lethargic and subsequently was brought to the emergency room. As per family, patient has been having significant cough that is nonproductive, significant wheeze with progressively worsening trouble breathing. Not on bilevel positive airway pressure (BiPAP) or continuous positive airway pressure (CPAP) at home, history of hypercarbic respiratory failure. Denies any sick contacts, recent travel. Denies any chest pain, pressure or discomfort, lower extremity swelling, nausea, vomiting, abdominal pain. Further history is limited secondary to respiratory distress. In the emergency room, patient was found to be in hypercarbic respiratory failure, placed on BiPAP. Arterial blood gas (ABG) was repeated. Initial BiPAP setting 18/6, 35% FiO2, rate of 8, pulling a tidal volume of 320. Repeat ABG shows mild improvement of hypercarbia. Subsequently, patient was switched to 14/6, 35% FiO2 with a tidal volume that is about the same, about 320. Patient was also found to have new onset left bundle branch block with sinus tachycardia. Denies any chest pain, pressure or discomfort. First set of cardiac enzymes has been negative. ALLERGIES: No known drug allergies. PAST MEDICAL HISTORY: 1. COPD with chronic hypoxic respiratory failure, on 3 liters nasal cannula at home. 2. History of migraines. 3. Osteoporosis. 4. Chronic anemia. 5. Restless legs. 6. Generalized anxiety. PAST SURGICAL HISTORY: Cardiac catheterization a year and a half ago, which was negative. FAMILY HISTORY: Father with emphysema and smoker. Mother of myocardial infarction (ID) and two brothers both with ID and a sister also with ID. SOCIAL HISTORY: is active smoker. Patient has 56 pack-year smoking history, still occasionally smokes. Denies any alcohol or illicit drug use. Denies any sick contact. REVIEW OF SYSTEMS: Limited secondary to respiratory distress. Reported shortness of breath and cough with nasal congestion. All other review of systems is negative. HOME MEDICATION: - Duo Nebs inhalation every 4 hours as needed - Combivent inhalation four times a day as needed - Norvasc 2.5 mg by mouth daily - Augmentin 125 mg by mouth twice a day - aspirin 81 mg by mouth daily - Symbicort 160/4.5 inhalation twice a day - calcium by mouth daily - Plavix 75 mg by mouth daily - Lasix 40 mg by mouth daily - Nasonex nasal spray twice a day - multivitamin one tablet by mouth daily - pramipexole 0.25 mg by mouth nightly - pravastatin 20 mg by mouth nightly - prednisone 60 mg by mouth daily - Prolia 60 mg subcutaneously as directed every 6 months - rizatriptan 10 mg by mouth daily as needed - Spiriva two inhalations daily - topiramate 25 mg by mouth daily, 50 mg by mouth nightly - trazodone 25 mg by mouth nightly PHYSICAL EXAMINATION: Patient with severe respiratory distress on BiPAP. VITAL SIGNS: Temperature 99.3, pulse 133, respirations 20, blood pressure 140/88, pulse oximetry 96-95% on 35% FiO2 via BiPAP 02/12. GENERAL: Patient is in respiratory distress, alert. PULMONARY: Diminished breath sounds bilaterally. Significant rhonchi bilaterally and with significant wheeze. Patient tripoding with tachypnea. CARDIAC: Irregular, tachycardia, S1, S2. ABDOMEN: Soft, nontender. Knott catheter placed in emergency room. EXTREMITIES: No clubbing, cyanosis or edema. EKG shows sinus tachycardia at 129 with left bundle branch block. ABG initial 6.96, 170, 313.9. Repeat 7.124, 99.3, 70.1. WBC 10.8, hemoglobin and hematocrit 12.5/38.9, platelets 308. Chemistry: Sodium 136, potassium 5.2, chloride 94, bicarbonate 37, BUN 21, creatinine 1.5, lactic acid 4.2. Cardiac troponin negative times one. C-reactive protein negative. Chest x-ray shows hyperinflation. ASSESSMENT AND PLAN: This is a 76-year-old female patient with underlying medical history of advanced chronic obstructive pulmonary disease (COPD) with chronic hypoxic respiratory failure, congestive heart failure (CHF), non-ST segment elevation myocardial infarction (NSTEMI), anxiety, migraines, osteoporosis, restless legs, admitted with acute hypoxic hypercarbic respiratory failure. 1. Acute hypercarbic respiratory failure secondary to pneumonia and COPD exacerbation. Patient chronically hypoxic requiring 3 liters of oxygen at home. Currently patient on bilevel positive airway pressure (BiPAP) with 14/6, 35% FiO2, pulling a tidal volume of 320, breathing at a rate of 30. Will repeat arterial blood gas (ABG) in an hour. Adjust BiPAP settings. Code status addressed. Patient currently remains FULL CODE. Followup C-reactive protein. Cultures, blood culture, sputum culture, respiratory panel. Will empirically start Rocephin and Zithromax, Solu-Medrol, budesonide, formoterol, Spiriva. Consulted pulmonary, Dr. Maynard. Will continue to follow. Patient has potential of getting intubated later tonight if does not improve. 2. Acute on chronic renal insufficiency likely secondary to underlying infection and severe respiratory distress. Will follow urine studies. Followup blood urea nitrogen (BUN) and creatinine. Would not move the patient for additional study tonight given severe respiratory distress. If patient's BUN and creatinine does not improve, will consider additional testing in terms of ultrasounds. 3. Lactic acidosis secondary to severe respiratory distress. Treatment as above. Followup lactic acid. 4. New left bundle branch block. Patient denies any chest pain. Likely secondary to demand ischemia due to severe respiratory distress. Will trend cardiac enzymes. Continue aspirin and statin, Plavix. 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 Treatment of respiratory condition as above. 5. History of migraines. Patient does not have any pain. Will continue to monitor. 6. Restless legs. Once patient's respiratory improves, will resume oral medication. 7. Generalized anxiety. Once patient's respiratory improves, will resume oral medication. 8. Hyperglycemia. Possibly associated with steroids. Followup A1c, insulin, nothing by mouth protocol, every 6 hours fingersticks. 9. History of migraine headache. Once patient's respiratory condition improves, will resume oral medication. 10. Deep venous thrombosis (DVT) prophylaxis. Heparin subcutaneously. DISPOSITION: Pending clinical improvement. Patient with severe respiratory distress and advanced COPD. Prognosis remains critical. Critical time spent exclusive of procedures 60 minutes.
--- NOTE | 2017-04-04 11:30 | REP ---
Portable chest x-ray: Single sitting AP view. History: Dyspnea and cough. Comparison study: April 02, 2017. Findings: There is mild patient motion unsharpness. The lungs are hyperinflated. No infiltrate is seen. Interstitial markings are prominent. Heart is mildly enlarged. There is a dextroconvex thoracic curvature again noted. Signed by Kristofer Salinas MD 04/04/2017 09:39 A
--- NOTE | 2017-04-04 11:30 | CCN ---
DATE: 04/04/2017 Critical care time was 1 hour. This excludes all procedures. I was called urgently to see Thais Castro due to severe respiratory distress. Thais is a 76-year-old female with known GOLD stage IV emphysema with chronic hypoxic hypercapnic respiratory failure. I am unable to obtain any significant history from her because of the severity of her shortness of breath. She states she has been short of breath for a couple of days. She actually presented to the emergency room on 04/02 and elected not to stay, although she was offered hospitalization. She returned in severe respiratory distress yesterday with a pH of 6.96. She was placed on bilevel noninvasive therapy and despite normalization of her blood gas this morning, she has continued severe shortness of breath to the point where she states she does not want to take the mask off. I asked her about to advance directives. She states she was given paperwork by her plastics and composites inspector, Dr. Rust however, she never filled it out or even thought about it. She states she does not want to be a vegetable, but she does not want to . I attempted to discuss the more likely scenarios however, she states I cannot talk about this now, talk about it with my son Edil. She is . Her family members are not at her bedside at this point in time. Overnight, she did have a troponin leak with small elevations in her liver function, and was thought to be secondary to the severity of her respiratory distress and acidemia. This morning she is having retractions, still tachypneic, appears significantly short of breath. PAST MEDICAL HISTORY: 1. Stage IV emphysema with pulmonary hypertension. FEV-1 of 0.5 liters, 28% of predicted measure in January of 2017. 2. Hypertension. 3. History of Takotsubo cardiomyopathy. 4. Paroxysmal atrial fibrillation. 5. Coronary artery disease. 6. Migraines. 7. Osteoporosis. 8. Anemia. 9. History of tobacco dependency. SOCIAL HISTORY: Unobtainable at this point in time. According to old records, the patient has at least a 50 pack-year history of smoking. FAMILY HISTORY: Unobtainable at this point in time. REVIEW OF SYSTEMS: Unobtainable due to severity of respiratory distress. PHYSICAL EXAMINATION: Temperature is 98.4, pulse is 87, respiratory rate is 24, oxygen saturation is 95% on 0.25 FiO2 on bilevel of 18/8. Blood pressure is 100/66 with a mean arterial pressure of 77. GENERAL: The patient appears uncomfortable, has retractions, unable to speak full sentences without pausing, is alert and oriented. HEENT: Sclerae clear and anicteric. Pupils equal and reactive to light. Mucous membranes are dry. Tongue is midline. Mallampati 1. NECK: Supple. No tracheal deviation or mass. LYMPHS: No cervical supraclavicular axillary adenopathy. CARDIAC: Distant heart sounds, tachycardic. S1-S2 without audible murmur, rub or gallop. No elevated JVP. No systemic edema. PULMONARY: Diffusely abnormal breath sounds decreased in all garcia with very poor air entry. There is a very tight expiratory wheeze heard at end exhalation. Exhalation is forced with the use of accessory muscles. There is no dullness to percussion. Chest is symmetric. ABDOMEN: Soft, nontender, nondistended. No hepatosplenomegaly. No masses or hernia. EXTREMITIES: No cyanosis, clubbing or edema. SKIN: No rashes, jaundice or bruising. MUSCULOSKELETAL: Significant muscle wasting. No obvious joint effusion or fracture. NEUROLOGIC: No asterixis, unilateral weakness or tremor. Laboratory evaluation shows a white blood cell count of 16.8, hemoglobin 11.5, hematocrit of 34.6, platelet count of 259, sodium is 138, potassium of 4.3, chloride of 97, bicarb of 33, BUN of 30, creatinine of 1.62. Arterial blood gas initially 6.96, pCO2 of 170, pAO2 of 313. Arterial blood gas now shows a pH of 7.42, pCO2 of 50.7 and pAO2 of 85.2. Chest x-ray is hyperinflated with flattened diaphragms, no acute infiltrate. Lactate is down to 2.8, mag is 3.1, AST is 81, ALT 88 and troponin up to 1.75. IMPRESSION: 76-year-old female with acute on chronic respiratory failure. 1. Acute on chronic respiratory failure likely from emphysema exacerbation; however, this could be progression of her underlying disease. She has severe end-stage lung disease at baseline. Will attempt to address advance directives today and continue to address these as the hospitalization goes on. Although there has been normalization of her arterial blood gas, she is still extremely symptomatic, unable to come off bilevel at this point in time. She is very tight with an end-expiratory wheeze. Will try to deliver medication via heliox to see if this will help her bronchospasm. I agree with the current antibiotics of ceftriaxone, azithromycin. She is on very high dose Solu-Medrol. Will taper this as soon as possible; however, due to the severity of her respiratory status, will continue this therapy until she is able to breathe better. She is also on Pulmicort, Perforomist and Spiriva. 2. Troponin leak. I agree patient was close to on her arrival to the emergency room. Troponin leak was likely secondary to the severity of her respiratory distress and severe acidemia. Will continue to monitor for arrhythmias, and monitor also monitor for signs of acute coronary syndrome. 3. Gastrointestinal (GI) prophylaxis with Protonix. 4. Deep vein thrombosis (DVT) prophylaxis with heparin. PROGNOSIS: Extremely guarded. The patient has end-stage lung disease with a high likelihood of . Although her arterial blood gas normalized with bilevel, it is not clear that she would be able to sustain breathing without the bilevel at this point in time. Advance directives are at the utmost importance and we will continue to discuss goals of care of during her hospitalization.
--- NOTE | 2017-04-04 15:41 | IPNPDOC ---
Date Seen The patient was seen on 04/04/17. Progress Note Hospitalist Progress Note Subjective: The patient is still on BiPAP, but she tells me that other than her breathing, nothing is bothering her. Specifically, she denies chest pain. Objective: Physical Exam: Vitals: Vital Sign - Last 24 Hours 04/03/17 04/03/17 04/03/17 04/03/17 22:20 22:33 22:56 22:58 Pulse 132 123 133 B/P (MAP) 140/88 (105) Pulse Ox 98 O2 Delivery Non-Rebreather O2 Flow Rate 15.0 FiO2 21 04/03/17 04/04/17 04/04/17 04/04/17 23:01 01:26 01:26 01:26 Pulse 114 119 Resp 28 28 B/P (MAP) FiO2 30 04/04/17 04/04/17 04/04/17 04/04/17 01:35 01:40 01:49 02:21 Temp 100.1 Pulse 117 Resp 35 B/P (MAP) 125/80 (95) Pulse Ox 95 95 O2 Delivery NIPPV (BIPAP/CPAP) BIPAP/CPAP FiO2 35 30 35 35 04/04/17 04/04/17 04/04/17 04/04/17 04:00 04:00 04:00 06:00 Temp 99.3 99.3 Pulse 98 98 Resp 23 23 B/P (MAP) 114/75 (88) 114/75 (88) Pulse Ox 94 94 O2 Delivery NIPPV (BIPAP/CPAP) BIPAP/CPAP NIPPV (BIPAP/CPAP) BIPAP/CPAP FiO2 25 25 25 25 04/04/17 04/04/17 04/04/17 04/04/17 07:37 07:58 08:00 08:00 Pulse 110 Resp 18 Pulse Ox 100 O2 Delivery BIPAP/CPAP BIPAP/CPAP FiO2 25 25 25 04/04/17 04/04/17 04/04/17 04/04/17 08:00 09:00 10:00 11:00 Temp 98.4 Pulse 97 Resp 24 B/P (MAP) 100/66 (77) Pulse Ox 95 98 97 98 O2 Delivery NIPPV (BIPAP/CPAP) BIPAP/CPAP BIPAP/CPAP BIPAP/CPAP FiO2 25 25 25 25 04/04/17 04/04/17 04/04/17/15/17 11:05 12:00 12:00 14:05 Temp 99.2 Pulse 92 92 96 Resp 20 26 41 B/P (MAP) 98/65 (76) Pulse Ox 97 97 O2 Delivery NIPPV (BIPAP/CPAP) BIPAP/CPAP FiO2 25 25 General: Awake, alert, moderate pulmonary distress HEENT: Normocephalic, atraumatic CV: Regular rate and rhythm Lungs: Decreased breath sounds in all lung garcia with use of accessory muscles Abd: Soft, nontender, nondistended Extremities: No edema Neuro: Alert and oriented 3 Psych: Anxious Labs and Imaging: Laboratory Tests 04/03/17 22:21 Red Blood Count 3.95 L, Mean Corpuscular Volume 98.5 H, Mean Corpuscular Hemoglobin 31.6, Mean Corpuscular Hemoglobin Concent 32.1, Red Cell Distribution Width 13.3, Neutrophils (%) (Auto) 69.0 H, Lymphocytes (%) (Auto) 24.4, Monocytes (%) (Auto) 6.0 H, Eosinophils (%) (Auto) 0.0, Basophils (%) ( Auto) 0.1, Neutrophils # (Auto) 7.4, Lymphocytes # (Auto) 2.6, Monocytes # (Auto ) 0.6, Eosinophils # (Auto) 0.0, Basophils # (Auto) 0.0, Calcium Level 9.4 04/04/17 01:56 Calcium Level 9.0, Total Creatine Kinase 108 04/04/17 06:08 Red Blood Count 3.65 L, Mean Corpuscular Volume 94.8, Mean Corpuscular Hemoglobin 31.5, Mean Corpuscular Hemoglobin Concent 33.2, Red Cell Distribution Width 13.3, Calcium Level 8.7 L, Total Creatine Kinase 170, Aspartate Amino Transf (AST/SGOT) 81 H, Alanine Aminotransferase (ALT/SGPT) 88 H , Alkaline Phosphatase 57, Total Bilirubin 0.2, Total Protein 7.3, Albumin 3.9 Assessment and Plan: 76-year-old female with advanced COPD causing chronic hypoxic respiratory failure on 3L O2 chronically, chronic dCHF with mod pHTN, history of NSTEMI and Takotsubo, hyperlipidemia, hypertension, anxiety, migraines, osteoporosis, restless leg syndrome who presented with shortness of breath and is admitted with respiratory acidosis and severe hypercarbic respiratory failure secondary to COPD exacerbation. 1. Respiratory acidosis and severe hypercarbic respiratory failure: Continue to treat underlying issue. Patient is still on BiPAP. Greatly appreciate the assistance of Dr. Maynard. 2. COPD exacerbation: Continue Solu-Medrol, Perforomist, Pulmicort, scheduled and as needed DuoNeb's, home Spiriva, Zithromax and Rocephin. Blood cultures and respiratory virus panel are pending. Sputum culture has been ordered. 3. Elevated troponin: The patient has denied chest pain all along, however, she does have a new left bundle branch block on her EKG, and her troponin has now bumped to 2.05. Dr. Kee spoke with Dr. Sotomayor of cardiology this morning, and I have conferred with him again after this most recent continued increase in her troponin. He is of the opinion and it would seem that the most likely scenario is that this is demand ischemia secondary to her severe respiratory distress and initial acidemia (patient arrived with a pH of 6.96). At this time, there is no role for anticoagulation, and there is no need to transfer the patient. We will continue to monitor her troponins and watch for any chest pain. Echo is pending. 4. Hyperkalemia: Resolved 5. Acute kidney injury: Her baseline creatinine appears to be close to 1 or at least in the low ones. Creatinine upon arrival was 1.51 and has now jumped to 1.62. I suspect this is secondary to her severe respiratory distress. Continue to monitor and treat her underlying pulmonary issue. Holding home by mouth Lasix. 6. Chronic diastolic CHF with moderate pulmonary hypertension: There is no evidence of fluid overload at this time. Continue to monitor patient closely. Holding home lasix given LELE. 7. History of NSTEMI, hyperlipidemia: Continue home aspirin, Plavix, statin. 8. Migraines: Continue home Topamax. 9. Restless leg syndrome: Holding home Mirapex. 10. Hyperglycemia: A1c is 6.3. This is likely secondary to steroids. The patient is currently nothing by mouth as she is on BiPAP. We'll continue sliding scale insulin every 6 hours. 11. Hypertension: Currently holding home Norvasc as BP has been a bit soft. Prophylaxis: Heparin and IV Protonix Dispo: Patient is very critically ill and overall prognosis is poor. Upon my discussion with her this morning, she did not want to discuss code status, and said that that was something she wanted to talk with her son about. She did express that she would want her son to be her healthcare proxy, so we filled out the appropriate paperwork at the bedside to document this. She states he'll be coming in later today, and she will discuss her code status with him at that time. VS, I&O, 24H, Fishbone Vital Signs/I&O Vital Signs Date Time Temp Pulse Resp B/P (MAP) Pulse Ox O2 Delivery O2 Flow Rate FiO2 04/04/17 14:05 96 41 04/04/17 12:00 97 BIPAP/CPAP 25 04/04/17 12:00 99.2 98/65 (76) 04/03/17 22:20 15.0 I&O- Last 24 Hours up to 6 AM 04/05/17 05:59 Intake Total 0 ml Output Total 450 ml Balance -450 ml Laboratory Data 24H LABS Laboratory Tests 2 04/03/17 22:17: Blood Gas Bicarbonate Standard 25.5, Arterial Blood pH 6.964*L, Arterial Blood Partial Pressure CO2 170.0*H, Arterial Blood Partial Pressure O2 313.9H, Arterial Blood Total CO2 42.9H, Arterial Blood HCO3 37.7H, Arterial Blood Base Excess 1.1, Arterial Blood Oxygen Saturation 99.8H, Estimated Mean Plasma Glucose 134H, Hemoglobin A1c 6.3H 04/03/17 22:21: Immature Granulocyte % (Auto) 0.5H, White Blood Count 10.8H, Red Blood Count 3.95L, Hemoglobin 12.5, Hematocrit 38.9, Mean Corpuscular Volume 98.5H, Mean Corpuscular Hemoglobin 31.6, Mean Corpuscular Hemoglobin Concent 32.1, Red Cell Distribution Width 13.3, Platelet Count 308, Neutrophils (%) (Auto) 69.0H, Lymphocytes (%) (Auto) 24.4, Monocytes (%) (Auto) 6.0H, Eosinophils (%) (Auto) 0.0, Basophils (%) (Auto) 0.1, Neutrophils # (Auto) 7.4, Lymphocytes # (Auto) 2.6, Monocytes # (Auto) 0.6, Eosinophils # (Auto) 0.0, Basophils # (Auto) 0.0, Immature Granulocyte # (Auto) 0.1H, Nucleated Red Blood Cells % (auto) 0.0, Anion Gap 5L, Glomerular Filtration Rate 35.9L, Blood Urea Nitrogen 21H, Creatinine 1.51H, Sodium Level 136, Potassium Level 5.2H, Chloride Level 94L, Carbon Dioxide Level 37H, Calcium Level 9.4, Aspartate Amino Transf (AST/SGOT) 32, Alanine Aminotransferase (ALT/SGPT) 37, Alkaline Phosphatase 60, Total Bilirubin 0.3, Direct Bilirubin < 0.1, C-Reactive Protein, Quantitative < 0.30, HB-Shd-F-Type Natriuretic Peptide 299H, Total Protein 7.9, Albumin 4.3, Albumin/ Globulin Ratio 1.19, Thyroid Stimulating Hormone (TSH) 0.614, Free Thyroxine Index 3.0, Thyroxine (T4) 9.4, Triiodothyronine (T3) Uptake 32 04/03/17 22:22: Lactic Acid Level 4.2*H, Total Creatine Kinase 69, Creatine Kinase MB 7.0H, Creatine Kinase MB Relative Index 10.14H, Troponin I 0.07 04/03/17 23:08: Blood Gas Bicarbonate Standard 24.2, Arterial Blood pH 7.124*L, Arterial Blood Partial Pressure CO2 99.3*H, Arterial Blood Partial Pressure O2 70.1L, Arterial Blood Total CO2 34.9H, Arterial Blood HCO3 31.8H, Arterial Blood Base Excess - 0.1, Arterial Blood Oxygen Saturation 88.0L 04/04/17 00:50: Bedside Glucose (Misc Panel) 355H 04/04/17 01:32: Urine Appearance HAZY, Urine Color YELLOW, Urine pH 5.0, Urine Specific [place] 1.017, Urine Protein 1+H, Urine Glucose (UA) NEGATIVE, Urine Ketones TRACEH, Urine Urobilinogen 2.0H, Urine Bilirubin NEGATIVE, Urine Leukocyte Esterase NEGATIVE, Urine Blood 2+H, Urine Nitrite NEGATIVE, Urine WBC (Auto) 6H, Urine RBC (Auto) 33H, Urine Hyaline Casts (Auto) 2, Urine Bacteria (Auto) NEGATIVE, Urine Squamous Epithelial Cells 0, Urine Mucus (Auto) SMALL, Urine Sperm (Auto) , Urine Random Osmolality 491L, Urine Random Creatinine 128.0, Urine Random Total Protein 47.5H, Urine Random Sodium 19, Urine Random Potassium 49.9, Urine Random Chloride 32 04/04/17 01:56: Anion Gap 6L, Glomerular Filtration Rate 33.3L, Lactic Acid Level 3.8*H, Blood Urea Nitrogen 27H, Creatinine 1.61H, Sodium Level 135L, Potassium Level 5.1, Chloride Level 96L, Carbon Dioxide Level 33H, Calcium Level 9.0, Total Creatine Kinase 108, Magnesium Level 3.4H, Creatine Kinase MB 14.0H, Creatine Kinase MB Relative Index 12.96H, Troponin I 0.90#H 04/04/17 02:40: Blood Gas Bicarbonate Standard 23.8, Arterial Blood pH 7.223*L, Arterial Blood Partial Pressure CO2 70.0*H, Arterial Blood Partial Pressure O2 126.6H, Arterial Blood Total CO2 30.3, Arterial Blood HCO3 28.2H, Arterial Blood Base Excess -0.9, Arterial Blood Oxygen Saturation 98.3 04/04/17 05:39: Bedside Glucose (Misc Panel) 118H 04/04/17 06:08: Nucleated Red Blood Cells % (auto) 0.0, Prothrombin Time 12.5, Prothromb Time International Ratio 0.92, Activated Partial Thromboplast Time 26.2L, Anion Gap 8 , Glomerular Filtration Rate 33.1L, Blood Urea Nitrogen 30H, Creatinine 1.62H, Sodium Level 138, Potassium Level 4.3, Chloride Level 97L, Carbon Dioxide Level 33H, Calcium Level 8.7L, Aspartate Amino Transf (AST/SGOT) 81H, Alanine Aminotransferase (ALT/SGPT) 88H, Total Creatine Kinase 170, Alkaline Phosphatase 57, Total Bilirubin 0.2, Total Protein 7.3, Albumin 3.9, Magnesium Level 3.1H, Creatine Kinase MB 23.7H, Creatine Kinase MB Relative Index 13.94H, Troponin I 1.75#*H, C-Reactive Protein, Quantitative < 0.30, Albumin/Globulin Ratio 1.15 04/04/17 06:17: Lactic Acid Followup at 4 Hours 2.8*H 04/04/17 07:37: Blood Gas Bicarbonate Standard 30.4H, Arterial Blood pH 7.420, Arterial Blood Partial Pressure CO2 50.7H, Arterial Blood Partial Pressure O2 85.2, Arterial Blood Total CO2 33.7H, Arterial Blood HCO3 32.1H, Arterial Blood Base Excess 6.5H, Arterial Blood Oxygen Saturation 96.7 04/04/17 11:55: Bedside Glucose (Misc Panel) 119H 04/04/17 12:02: Total Creatine Kinase 203H, Creatine Kinase MB 23.1H, Creatine Kinase MB Relative Index 11.37H, Troponin I 2.05*H CBC/BMP Laboratory Tests 04/03/17 22:21 Red Blood Count 3.95 L, Mean Corpuscular Volume 98.5 H, Mean Corpuscular Hemoglobin 31.6, Mean Corpuscular Hemoglobin Concent 32.1, Red Cell Distribution Width 13.3, Neutrophils (%) (Auto) 69.0 H, Lymphocytes (%) (Auto) 24.4, Monocytes (%) (Auto) 6.0 H, Eosinophils (%) (Auto) 0.0, Basophils (%) ( Auto) 0.1, Neutrophils # (Auto) 7.4, Lymphocytes # (Auto) 2.6, Monocytes # (Auto ) 0.6, Eosinophils # (Auto) 0.0, Basophils # (Auto) 0.0, Calcium Level 9.4 04/04/17 01:56 Calcium Level 9.0, Total Creatine Kinase 108 04/04/17 06:08 Red Blood Count 3.65 L, Mean Corpuscular Volume 94.8, Mean Corpuscular Hemoglobin 31.5, Mean Corpuscular Hemoglobin Concent 33.2, Red Cell Distribution Width 13.3, Calcium Level 8.7 L, Total Creatine Kinase 170, Aspartate Amino Transf (AST/SGOT) 81 H, Alanine Aminotransferase (ALT/SGPT) 88 H , Alkaline Phosphatase 57, Total Bilirubin 0.2, Total Protein 7.3, Albumin 3.9 Microbiology Microbiology 04/03/17 Blood Culture, Received Pending 04/03/17 Blood Culture, Received Pending 04/04/17 Respiratory Virus Panel (PCR) ([facility]) - Final, Complete Parainfluenza 3 (Piv3) CHON SANCHEZ Apr 04, 2017 15:41
[2017-04-04] MEDS ORDERED: SODIUM CHLORIDE NASAL 0.65% SPRAY BTL (OCEAN) PRN (18:45)
[2017-04-04] MEDS: TOPIRAMATE (TopAMAX) 25 MG TAB PO SCH (21:00)
[2017-04-04] MEDS: PRAVASTATIN 20 MG TAB PO SCH (21:51)
[2017-04-05] VITALS (7 sets, daily range): BP systolic 99–112; BP diastolic 58–62; O2SAT 91–98
[2017-04-05] MEDS: AZITHROMYCIN INJ 500 MG, VIAL MATE ADAPTER 1 EACH in D5W 250 ML IV SCH (01:16)
[2017-04-05] MEDS: IPRATROPIUM 0.5MG/ALBUTEROL 2.5MG INH SOL UD 3ML (DUONEB)(J7620) NEB SCH ×2 (02:14→08:00)
[2017-04-05] MEDS: cefTRIAXone SOD 2 GM in D5W 50 ML IV SCH (02:35)
[2017-04-05 04:31] LABS: MEAN CORPUSCULAR HEMOGLOBIN 31.8 pg (27.0-33.0); MEAN CORPUSCULAR HGB CONC 33.5 g/dl (32.0-36.5); MEAN CORPUSCULAR VOLUME 94.7 fl (80.0-96.0); RED CELL DISTRIBUTION WIDTH 14.1 % (11.5-14.5); WHITE BLOOD COUNT 13.2 10^3/uL (4.0-10.0)
[2017-04-05 04:49] LABS: ALBUMIN 3.8 GM/DL (3.2-5.2); ALBUMIN/GLOBULIN RATIO 1.23 (1.00-1.93); BILIRUBIN,TOTAL 0.2 MG/DL (0.2-1.0); CALCIUM LEVEL 8.5 MG/DL (8.8-10.2); CREATININE FOR GFR 1.21 MG/DL (0.55-1.02); GLOMERULAR FILTRATION RATE 46.3 (>39); TOTAL PROTEIN 6.9 GM/DL (6.4-8.2)
[2017-04-05] MEDS: HumaLOG INSULIN (NovoLOG) PER UNIT SC SCH ×2 (06:00)
--- NOTE | 2017-04-05 06:06 | ECHO ---
INPATIENT ECHOCARDIOGRAPHIC REPORT DATE OF PROCEDURE: 04/04/2017 AGE: 76. GENDER: Female. HEIGHT: 62 inches. WEIGHT: 102 pounds. BODY SURFACE AREA: 1.44 meters squared. INPATIENT: Intensive care unit (ICU) Room 3205 REFERRING PHYSICIAN: Dr. Kee INDICATIONS: Dyspnea. MEASUREMENTS: 2-D Measurements: RV: 3.6 cm LV: 3.7 cm Septum: 1.0 cm Posterior wall: 1.0 cm Aortic root: 2.5 cm LA: 3.0 cm LVEF: 45% Doppler Measurements: AV: 1.4 m/s LVOT: 1.2 m/s MV: E 55 A 120 EA ratio 0.5 E prime: 4.6 A prime: 12 E/E prime ratio: 14.6 PV: 0.98 m/s Pulmonary artery acceleration time: 81 ms RVSP: 45-30 mmHg IVC: 2.3 cm COMMENTS: Normal sinus rhythm with left bundle branch block. Technically difficult study in light of the patient's body habitus and pulmonary disease but diagnostically useful information was still obtained. Normal left heart chamber sizes. The right ventricle was upper limits of normal and the right atrium was at least mildly dilated. Normal left ventricular wall thickness. On real-time imaging from the parasternal and projections there was paradoxical septal and apical akinesis related to her left bundle branch block plus/minus right ventricular pressure overload. The inferior and lateral and anterolateral ashraf move normally. Slightly thickened mitral annulus but normal leaflet thickness and excursion with no posterior systolic buckling. Three equal size aortic cusps with marginal cusp edge thickening but adequate cusp separation. Normal aortic root size. No apparent intracardiac mass or pericardial effusion. Color flow Doppler study taken from the parasternal and projection showed trace mitral mild-moderate tricuspid but no aortic insufficiency. Guided continuous wave Doppler of her aortic valve showed a normal peak systolic velocity against LV outflow tract obstruction. Pulsed and continuous wave Doppler of her LV inflow tract taken from the apical four-chamber projection showed normal diastolic filling velocities against mitral stenosis. There was more prominent late diastolic/atrial dependent filling pattern. Diastolic dysfunction was further confirmed by tissue Doppler of her mitral annulus. Current estimated pulmonary artery wedge pressure was 18 mmHg. Pulsed and continuous wave Doppler of her pulmonary trunk showed a normal peak systolic velocity against RV outflow tract obstruction. Her pulmonary artery acceleration time was significantly abbreviated consistent with an elevated pulmonary vascular resistance. Guided continuous wave Doppler of her tricuspid valve allowed our estimation of her right ventricular systolic pressure (at least moderately increased). Her inferior vena cava was mildly dilated with markedly reduced respiratory collapse consistent with an elevated central venous pressure. CONCLUSIONS: Technically challenging study. Normal left ventricular size and wall thickness with paradoxical and apical wall motion abnormalities related to left bundle branch block plus/minus right ventricular pressure overload. Mild to moderate impairment of global resting systolic function. Normal left atrial size but Doppler evidence of an impairment of LV diastolic function with current mean left atrial pressure upper limits of normal. Right ventricular chamber size upper limits of normal with Doppler evidence of at least moderately severe pulmonary hypertension. Mildly dilated right atrium and inferior vena cava with significantly reduced respiratory collapse consistent with an elevated central venous pressure. Subtle degenerative changes of the mitral and aortic valvular apparatus without functionally significant valvular abnormality. The above test findings appear to be primarily related to cor pulmonale. Left atrial size and Doppler evidence against a significantly elevated mean left atrial pressure/pulmonary venous pressure to account for the patient's shortness of breath.
[2017-04-05] MEDS: HEPARIN SOD (PORCINE) 5000 UNITS/ML VIAL SC SCH (06:09)
--- NOTE | 2017-04-05 07:58 | ECGEPIP ---
Stationary ECG Study [facility] - ED Test Date: 2017-04-03 Pat Name: LORRAINE VAZQUEZ Department: Room: [place] [address] Gender: F [employer] Lead: [place]: 1940 Requested By: LEANN Plata Order Number: [id number] Reading MD: Moises Morrow Measurements Intervals Casey Rate: 129 P: 257 WI: 112 QRS: -48 QRSD: 143 T: 86 QT: 313 QTc: 460 Interpretive Statements JUNCTIONAL TACHYCARDIA LEFT AXIS DEVIATION LEFT BUNDLE BRANCH BLOCK, NEW COMPARED 03/07/17 CONSIDER ISCHEMIA/INFARCT Electronically Signed On 04-05-2017 7:57:45 EDT by Moises Morrow
[2017-04-05] MEDS: BUDESONIDE 0.5 MG/2 ML INHALATION SUSPENSION INH SCH (08:04)
[2017-04-05] MEDS: FORMOTEROL FUMARATE 20 MCG/2 ML INHALATION SOLUTION (PERFOROMIST) INH SCH (08:04)
[2017-04-05] MEDS: TIOTROPIUM INHALER/CAPSULE (SPIRIVA) INH SCH (08:04)
[2017-04-05 08:06] LABS: ABG BASE EXCESS 9.1 (-2.0-2.0); ABG HCO3 34.1 MEQ/L (22.0-26.0); ABG PARTIAL PRESSURE CO2 48.6 mmHg (35.0-45.0); ABG PARTIAL PRESSURE O2 82.9 mmHg (75.0-100.0); ABG STANDARD HCO3 32.9 MEQ/L (22.0-26.0); ABG TOTAL CO2 35.6 MEQ/L (23.0-31.0); ABG pH (ARTERIAL) 7.464 UNITS (7.350-7.450)
--- NOTE | 2017-04-05 09:06 | IPNPDOC ---
Text Note Date of Service The patient was seen on 04/05/17. NOTE Patient is tiring on Bipap, in significant distress. She is evaluated by myself and Dr. Maynard at the bedside. She is oriented to self and knows she is in the ICU in [place]. Conversation is witnessed by her primary nurse. Options including intubation vs comfort measures are discussed with the patient , and she states she would like to kept comfortable and pass naturally rather than be intubated. She asks us to call her son Edil. I spoke with son Edil Castro on the phone, explaining the transition to [facility], and answered all questions. MOLST form is completed and [facility] orders placed. VS,Fishbone, I+O VS, Fishbone, I+O Laboratory Tests 04/05/17 04:19 Red Blood Count 3.40 L, Mean Corpuscular Volume 94.7, Mean Corpuscular Hemoglobin 31.8, Mean Corpuscular Hemoglobin Concent 33.5, Red Cell Distribution Width 14.1, Calcium Level 8.5 L, Aspartate Amino Transf (AST/SGOT) 59 H, Alanine Aminotransferase (ALT/SGPT) 67, Alkaline Phosphatase 47, Total Bilirubin 0.2, Total Protein 6.9, Albumin 3.8 Vital Signs Date Time Temp Pulse Resp B/P (MAP) Pulse Ox O2 Delivery O2 Flow Rate FiO2 04/05/17 08:11 93 30 04/05/17 07:53 25 04/05/17 06:00 98 BIPAP/CPAP 04/05/17 06:00 98.1 112/59 (76) 04/03/17 22:20 15.0 CHON SANCHEZ Apr 05, 2017 09:06
--- NOTE | 2017-04-05 09:48 | CCN ---
DATE OF SERVICE: 04/05/2017 At bedside this morning after Dr. Lackey had talked to the patient, the patient had expressed to her that she just wanted to be kept comfortable and naturally. I went in to interview the patient and she has said similar things to me. We had a 20-minute discussion regarding mechanical ventilation, CPR and palliative care. After an extensive conversation despite the patient being severely dyspneic, she states she understood and that she wanted to choose palliative care only. Therefore she was converted to comfort measures only this morning. Her son was contacted by Dr. Lackey. The patient remains tachypneic, appears uncomfortable, appears that she will likely go into full respiratory failure without any bilevel noninvasive therapy. She has been unable to tolerate coming off any BiPAP. Despite normalization of blood gas, she is unable to tolerate being off bilevel noninvasive therapy. PHYSICAL EXAMINATION: Temperature 98.1, pulse is 81, respiratory rate is 30, blood pressure is 112/59, oxygen saturations 98% on 25% FiO2 on 18/8 bilevel noninvasive therapy. HEENT: Sclerae clear and anicteric. Pupils equal, react to light. Mucous membranes are moist without lesions. Oropharynx without erythema or exudate. Poor dentition. Tongue is midline. Neck: Supple. No tracheal deviation or mass. No elevated JVP. Lymph: No cervical, supraclavicular or axillary adenopathy. Cardiac: Sinus tachycardia without murmur, rub or gallop. No elevated JVP. No peripheral edema. Pulmonary: Significant increase in AP diameter, decreased breath sounds throughout both lung garcia. Very poor air entry. Prolonged expiratory phase with end-expiratory wheeze. No dullness to percussion. Abdomen is scaphoid, soft, nontender, nondistended. No hepatosplenomegaly. No masses or hernia. Extremities: Chronic muscle wasting. Neuro: No unilateral weakness, tremor or asterixis. Laboratory evaluation shows a pH of 746, pCO2 of 48 and pAO2 of 82.9. Sodium is 137, potassium 4.0, chloride is 95, bicarb is 39, BUN is 37, creatinine is 1.21, magnesium is 3.0. White blood cell count was 13.2 with hemoglobin was 10.8, hematocrit was 32.2, platelet count of 236. Chest x-ray from yesterday showed no infiltrates, shows significant hyperexpansion with flattening of the diaphragms. IMPRESSION: 1. Respiratory failure, acute hypoxic hypercarbic in nature. Patient unable to come off bilevel noninvasive therapy for any point in time due to severity of shortness breath. She has opted for comfort measures as mentioned above. Extensive discussion regarding CPR, mechanical ventilation and palliative care this morning for approximately 20 minutes. 2. End-stage chronic obstructive pulmonary disease (COPD). I do not find any reversible cause of her respiratory failure. There is no evidence of infiltrate on chest x-ray. She does not appear to have any form of infection at this point in time. I agree with her decision towards comfort measures. The case was discussed with her primary care and her son.
[2017-04-05] MEDS: SCOPOLAMINE 1.5 MG TRANSDERMAL TOP SCH (10:29)
[2017-04-05] MEDS: MORPHINE 2 MG/ML 1ML SYRINGE IV PRN ×3 (10:38→20:21)
[2017-04-05] MEDS: IPRATROPIUM 0.5MG/ALBUTEROL 2.5MG INH SOL UD 3ML (DUONEB)(J7620) NEB PRN ×2 (17:17→19:53)
--- NOTE | 2017-04-05 18:22 | IPNPDOC ---
Date Seen The patient was seen on 04/05/17. Progress Note Hospitalist Progress Note Patient evaluated from 8:35-9:15am today. Subjective: The patient is still on BiPAP, significantly SOB, less comfortable than yesterday, says her SOB is her only problem Objective: Physical Exam: Vitals: Vital Sign - Last 24 Hours 04/04/17 04/04/17 04/04/17 04/04/17 19:00 19:19 19:24 20:00 Temp 98.8 Pulse 127 104 Resp 37 27 B/P (MAP) 127/73 (91) Pulse Ox 96 94 O2 Delivery BIPAP/CPAP NIPPV (BIPAP/CPAP) FiO2 25 25 25 04/04/17 04/04/17 04/04/17 04/04/17 20:00 20:00 21:00 22:00 Pulse Ox 94 97 91 O2 Delivery BIPAP/CPAP BIPAP/CPAP BIPAP/CPAP BIPAP/CPAP FiO2 25 25 25 25 04/04/17 04/04/17 04/04/17 04/04/17 22:00 22:00 23:00 23:06 Temp 98.4 Pulse 97 104 Resp 23 30 B/P (MAP) 113/63 (80) Pulse Ox 91 97 O2 Delivery NIPPV (BIPAP/CPAP) BIPAP/CPAP FiO2 25 25 25 04/05/17 04/05/17 04/05/17 04/05/17 00:00 00:00 00:00 01:00 Temp 98.3 Pulse 88 Resp 22 B/P (MAP) 105/58 (74) Pulse Ox 91 91 93 O2 Delivery BIPAP/CPAP BIPAP/CPAP NIPPV (BIPAP/CPAP) BIPAP/CPAP FiO2 25 25 25 25 04/05/17 04/05/17 04/05/17 04/05/17 02:00 02:00 02:15 02:27 Temp 98.6 Pulse 92 93 Resp 20 30 B/P (MAP) 102/62 (75) Pulse Ox 95 92 O2 Delivery NIPPV (BIPAP/CPAP) BIPAP/CPAP FiO2 25 25 25 04/05/17 04/05/17 04/05/17 04/05/17 03:00 04:00 04:00 04:00 Temp 98.9 Pulse 86 Resp 19 B/P (MAP) 99/59 (72) Pulse Ox 96 97 97 O2 Delivery BIPAP/CPAP BIPAP/CPAP NIPPV (BIPAP/CPAP) BIPAP/CPAP FiO2 25 25 25 25 04/05/17 04/05/17 04/05/17 04/05/17 05:00 06:00 06:00 07:53 Temp 98.1 Pulse 81 Resp 16 B/P (MAP) 112/59 (76) Pulse Ox 95 98 98 O2 Delivery BIPAP/CPAP NIPPV (BIPAP/CPAP) BIPAP/CPAP FiO2 25 25 25 25 04/05/17 04/05/17 04/05/17 04/05/17 08:00 08:11 10:38 11:36 Pulse 93 Resp 30 26 15 O2 Delivery BIPAP/CPAP FiO2 25 04/05/17 04/05/17 04/05/17 04/05/17 12:00 15:19 17:00 17:20 Pulse 27 90 Resp 27 O2 Delivery BIPAP/CPAP FiO2 25 30 General: Awake, significant pulmonary distress HEENT: Normocephalic, atraumatic CV: Regular rate and rhythm Lungs: Decreased breath sounds in all lung garcia with use of accessory muscles Abd: Soft, nontender, nondistended Extremities: No edema Neuro: Oriented to self and being in the ICU in [facility]: Anxious Labs and Imaging: Laboratory Tests 04/05/17 04:19 Red Blood Count 3.40 L, Mean Corpuscular Volume 94.7, Mean Corpuscular Hemoglobin 31.8, Mean Corpuscular Hemoglobin Concent 33.5, Red Cell Distribution Width 14.1, Calcium Level 8.5 L, Aspartate Amino Transf (AST/SGOT) 59 H, Alanine Aminotransferase (ALT/SGPT) 67, Alkaline Phosphatase 47, Total Bilirubin 0.2, Total Protein 6.9, Albumin 3.8 Assessment and Plan: 76-year-old female with advanced COPD causing chronic hypoxic respiratory failure on 3L O2 chronically, chronic dCHF with mod pHTN, history of NSTEMI and Takotsubo, hyperlipidemia, hypertension, anxiety, migraines, osteoporosis, restless leg syndrome who presented with shortness of breath and is admitted with respiratory acidosis and severe hypercarbic respiratory failure secondary to COPD exacerbation. This morning she is in significantly more distress than yesterday, and despite improvement in her blood gas, she is so SOB that she is unable to tolerate being off bipap. See my note from this morning, but discussion with patient has elucidated that she wants to be kept comfortable until she passes naturally and does not desire intubation and resuscitation. At her request, this was conveyed via phone to her HCPOA and son Edil Castro. We transitioned to SINGLE SP[employer] SCREW MACHINE OPERATOR this morning. After discussing with Dr. Maynard , will continue bipap as a comfort measure if the patient desires. Please see below for summary of care prior to transitioning to SINGLE SP[employer] SCREW MACHINE OPERATOR. 1. Respiratory acidosis and severe hypercarbic respiratory failure: Attempted to treat underlying issue as below and with BiPAP. Greatly appreciate the assistance of Dr. Maynard. 2. COPD exacerbation: Treated with Solu-Medrol, Perforomist, Pulmicort, scheduled and as needed DuoNeb's, home Spiriva, Zithromax and Rocephin. Blood cultures and respiratory virus panel are pending. Sputum culture has been ordered. 3. Elevated troponin: The patient has denied chest pain all along, however, she does have a new left bundle branch block on her EKG, and her troponin bumped to 2.[address] Kee and myself spoke with Dr. Sotomayor of cardiology and he is of the opinion and it would seem that the most likely scenario is that this is demand ischemia secondary to her severe respiratory distress and initial acidemia (patient arrived with a pH of 6.96). At this time , there is no role for anticoagulation, and there is no need to transfer the patient. Echo showed EF 45%, diastolic dysfunction, moderately severe pHTN, cor pulmonale. 4. Hyperkalemia: Resolved 5. Acute kidney injury: Her baseline creatinine appears to be close to 1 or at least in the low ones. Creatinine upon arrival was 1.51, jumped to 1.62 and is now improving. I suspect this is secondary to her severe respiratory distress. 6. Chronic diastolic CHF with moderate pulmonary hypertension: There was no evidence of fluid overload at presentation. 7. History of NSTEMI, hyperlipidemia: Initially continued on home aspirin, Plavix, statin. 8. Migraines: Initially continued home Topamax. 9. Restless leg syndrome: Holding home Mirapex. 10. Hyperglycemia: A1c is 6.3. This is likely secondary to steroids. 11. Hypertension: Held home Norvasc as BP has been a bit soft. Prophylaxis: Initially Heparin and IV Protonix VS, I&O, 24H, Fishbone Vital Signs/I&O Vital Signs Date Time Temp Pulse Resp B/P (MAP) Pulse Ox O2 Delivery O2 Flow Rate FiO2 04/05/17 17:20 90 04/05/17 17:00 27 04/05/17 15:19 30 04/05/17 12:00 BIPAP/CPAP 04/05/17 06:00 98 04/05/17 06:00 98.1 112/59 (76) 04/03/17 22:20 15.0 Laboratory Data 24H LABS Laboratory Tests 2 04/04/17 23:59: Bedside Glucose (Misc Panel) 152H, Total Creatine Kinase 186, Creatine Kinase MB 15.5H, Creatine Kinase MB Relative Index 8.33H, Troponin I 1.37#H 04/05/17 04:19: Nucleated Red Blood Cells % (auto) 0.0, Anion Gap 3L, Glomerular Filtration Rate 46.3, Blood Urea Nitrogen 37H, Creatinine 1.21H, Sodium Level 137, Potassium Level 4.0, Chloride Level 95L, Carbon Dioxide Level 39H, Calcium Level 8.5L, Aspartate Amino Transf (AST/SGOT) 59H, Alanine Aminotransferase (ALT /SGPT) 67, Alkaline Phosphatase 47, Total Bilirubin 0.2, Total Protein 6.9, Albumin 3.8, Magnesium Level 3.0H, C-Reactive Protein, Quantitative 0.34H, Albumin/Globulin Ratio 1.23 04/05/17 06:00: Bedside Glucose (Misc Panel) 159H 04/05/17 08:01: Blood Gas Bicarbonate Standard 32.9H, Arterial Blood pH 7.464H, Arterial Blood Partial Pressure CO2 48.6H, Arterial Blood Partial Pressure O2 82.9, Arterial Blood Total CO2 35.6H, Arterial Blood HCO3 34.1H, Arterial Blood Base Excess 9.1H, Arterial Blood Oxygen Saturation 96.2 CBC/BMP Laboratory Tests 04/05/17 04:19 Red Blood Count 3.40 L, Mean Corpuscular Volume 94.7, Mean Corpuscular Hemoglobin 31.8, Mean Corpuscular Hemoglobin Concent 33.5, Red Cell Distribution Width 14.1, Calcium Level 8.5 L, Aspartate Amino Transf (AST/SGOT) 59 H, Alanine Aminotransferase (ALT/SGPT) 67, Alkaline Phosphatase 47, Total Bilirubin 0.2, Total Protein 6.9, Albumin 3.8 Microbiology Microbiology 04/03/17 Blood Culture - Preliminary, Resulted No growth after 24 hours . All specim... 04/03/17 Blood Culture - Preliminary, Resulted No growth after 24 hours . All specim... 04/04/17 Respiratory Virus Panel (PCR) ([place]) - Final, Complete Parainfluenza 3 (Piv3) CHON SANCHEZ Apr 05, 2017 18:22
[2017-04-06] MEDS: IPRATROPIUM 0.5MG/ALBUTEROL 2.5MG INH SOL UD 3ML (DUONEB)(J7620) NEB PRN ×3 (00:15→07:53)
[2017-04-06] MEDS: LORazepam 2 MG/ML VIAL (J2060) IV PRN ×2 (10:03→16:31)
[2017-04-06] MEDS ORDERED: ALBUTEROL SULFATE 2.5 MG/0.5 ML INH NEB SOLN NEB PRN (10:15)
[2017-04-06] MEDS: MORPHINE 2 MG/ML 1ML SYRINGE IV PRN (10:16)
[2017-04-06] MEDS: predniSONE 20 MG TAB PO SCH (12:12)
[2017-04-06] MEDS: MORPHINE 10MG/0.5ML ORAL CONCENTRATE SOLUTION U/D SL PRN ×3 (12:13→19:17)
[2017-04-06] MEDS: IPRATROPIUM 0.5MG/ALBUTEROL 2.5MG INH SOL UD 3ML (DUONEB)(J7620) NEB SCH ×2 (13:38→19:39)
[2017-04-06] MEDS: SYMBICORT 160/4.5MCG INHALER 6GM INH SCH ×3 (13:41→22:03)
--- NOTE | 2017-04-06 14:03 | IPNPDOC ---
Date Seen The patient was seen on 04/06/17. Progress Note Subjective: Complains of SOB on taking off the mask. Says wants to go home . Says did not understand what comfort measures was and wants to get better. Explained that her lungs are never going to get better and that the bipap is only a temporary measure and cannot be given at home. Explained that we are going to give her morphine and ativan for her breathing and to keep her comfortable and then once she is comfortable with the medications will have to take off the mask . Explained about home hospice and she expressed interest in talking to them. At this point she understood what RN INTEGRATED was and was ok to be in that status. She remains DNR , DNI and RN INTEGRATED . Discussed in detail with several family members 3 daughters, son and . General: Awake, significant pulmonary distress on BIPAP mask HEENT: Normocephalic, atraumatic CV: Regular rate and rhythm Lungs: Decreased breath sounds in all lung garcia with use of accessory muscles Abd: Soft, nontender, nondistended Extremities: No edema Neuro: Oriented to self and being in the ICU in [place] [facility]: Anxious Assessment and Plan: 76-year-old female with advanced COPD causing chronic hypoxic respiratory failure on 3L O2 chronically, chronic dCHF with mod pHTN, history of NSTEMI and Takotsubo, hyperlipidemia, hypertension, anxiety, migraines, osteoporosis, restless leg syndrome who presented with shortness of breath and is admitted with respiratory acidosis and severe hypercarbic respiratory failure secondary to COPD exacerbation. Please see below for summary of care prior to transitioning to RN INTEGRATED. 1. Respiratory acidosis and severe hypercarbic respiratory failure: Attempted to treat underlying issue as below and with BiPAP. Greatly appreciate the assistance of Dr. Maynard. Remains on BIPAP for comfort measures, will give adequate morphine and ativan to control air hunger and anxiety and once comfortable with those will discontinue BIPAP. 2.End stage COPD exacerbation: Treated with Solu-Medrol, Perforomist, Pulmicort , scheduled and as needed DuoNeb's, home Spiriva, Zithromax and Rocephin. No improvement . will continue with duonebs. 3. Elevated troponin: The patient has denied chest pain all along, however, she does have a new left bundle branch block on her EKG, and her troponin bumped to 2.05 before trending down. this is due to demand ischemia secondary to her severe respiratory distress and initial acidemia (patient arrived with a pH of 6.96). At this time, there is no role for anticoagulation, and there is no need to transfer the patient. Echo showed EF 45%, diastolic dysfunction, moderately severe pHTN, cor pulmonale. 4. Hyperkalemia: Resolved 5. Acute kidney injury: Her baseline creatinine appears to be close to 1 or at least in the low ones. Creatinine upon arrival was 1.51, jumped to 1.62 6. Chronic diastolic CHF with moderate pulmonary hypertension: There was no evidence of fluid overload . Lasix has been stopped 7. History of NSTEMI, hyperlipidemia: Initially continued on home aspirin, Plavix, statin. now off these medications; 8. Migraines: Initially continued home Topamax. 9. Restless leg syndrome: will continue mirapex. 10. Hyperglycemia: A1c is 6.3. This is likely secondary to steroids. 11. Hypertension: Held home Norvasc as BP has been a bit soft. Prophylaxis: Initially Heparin and IV Protonix VS, I&O, 24H, Fishbone Vital Signs/I&O Vital Signs Date Time Temp Pulse Resp B/P (MAP) Pulse Ox O2 Delivery O2 Flow Rate FiO2 04/06/17 12:43 20 NIPPV (BIPAP/CPAP) 04/06/17 08:45 25 04/05/17 17:20 90 04/05/17 06:00 98 04/05/17 06:00 98.1 112/59 (76) 04/03/17 22:20 15.0 Laboratory Data Microbiology Microbiology 04/03/17 Blood Culture - Preliminary, Resulted No Growth after 48 hours. All Specime... 04/03/17 Blood Culture - Preliminary, Resulted No Growth after 48 hours. All Specime... 04/04/17 Respiratory Virus Panel (PCR) ([place]) - Final, Complete Parainfluenza 3 (Piv3) MORGAN WAITE MD Apr 06, 2017 14:03
[2017-04-06] MEDS: traZODone 50 MG TAB PO SCH (20:36)
[2017-04-06] MEDS: PRAMIPEXOLE 0.25 MG TAB PO SCH (20:36)
[2017-04-07] MEDS: IPRATROPIUM 0.5MG/ALBUTEROL 2.5MG INH SOL UD 3ML (DUONEB)(J7620) NEB SCH ×4 (01:02→19:46)
[2017-04-07] MEDS: SYMBICORT 160/4.5MCG INHALER 6GM INH SCH ×2 (07:23→19:47)
[2017-04-07] MEDS: predniSONE 20 MG TAB PO SCH (09:25)
[2017-04-07] MEDS: LORazepam 2 MG/ML VIAL (J2060) IV PRN ×2 (09:56→18:32)
[2017-04-07] MEDS: MORPHINE 10MG/0.5ML ORAL CONCENTRATE SOLUTION U/D SL PRN ×2 (11:53→19:25)
--- NOTE | 2017-04-07 13:48 | IPNPDOC ---
Text Note Date of Service The patient was seen on 04/07/17. NOTE Subjective: Sob and air hunger better with morphine and ativan , has not required bipap since last evening. Hospice spoke with family today. Says wants to go home . Explained that antibiotics will not help and she does not have any infection , asked about restarting lasix will continue it prn leg swelling. She remains DNR , DNI and BROOM MAKER awaiting discharge home with hospice versus hospice house. Discussed in detail with several family members 3 daughters, son and . Physical Exam: General: Awake, alert oriented, mild distress, HEENT: Normocephalic, atraumatic CV: Regular rate and rhythm Lungs: Decreased breath sounds in all lung garcia with use of accessory muscles Abd: Soft, nontender, nondistended Extremities: No edema Assessment and Plan: 76-year-old female with advanced COPD causing chronic hypoxic respiratory failure on 3L O2 chronically with mod pHTN and corpulmonale, history of NSTEMI and Takotsubo, systolic and diastolic CHF, hyperlipidemia, hypertension, anxiety, migraines, osteoporosis, restless leg syndrome who presented with shortness of breath and is admitted with respiratory acidosis and severe hypercarbic respiratory failure secondary toend stage COPD. Currently patient is in BROOM MAKER status. Please see below for summary of care prior to transitioning to BROOM MAKER. 1. Respiratory acidosis and severe hypercarbic respiratory failure: Attempted to treat underlying issue as below and with BiPAP. Greatly appreciate the assistance of Dr. Maynard. At present will give adequate morphine and ativan to control air hunger and anxiety and once comfortable with those will discontinue BIPAP. 2.End stage COPD exacerbation: Treated with Solu-Medrol, Perforomist, Pulmicort , scheduled and as needed DuoNeb's, home Spiriva, Zithromax and Rocephin. No improvement . will continue with duonebs only. 3. Elevated troponin: The patient has denied chest pain all along, however, she does have a new left bundle branch block on her EKG, and her troponin bumped to 2.05 before trending down. this is due to demand ischemia secondary to her severe respiratory distress and initial acidemia (patient arrived with a pH of 6.96). At this time, there is no role for anticoagulation, and there is no need to transfer the patient. Echo showed EF 45%, diastolic dysfunction, moderately severe pHTN, cor pulmonale. 4. Hyperkalemia: Resolved 5. Acute kidney injury: Her baseline creatinine appears to be close to 1 or at least in the low ones. Creatinine upon arrival was 1.51, jumped to 1.62 6. Chronic diastolic CHF with moderate pulmonary hypertension: There was no evidence of fluid overload . Lasix has been stopped 7. History of NSTEMI, hyperlipidemia: Initially continued on home aspirin, Plavix, statin. now off these medications; 8. Migraines: Initially continued home Topamax. 9. Restless leg syndrome: will continue mirapex. 10. Hyperglycemia: A1c is 6.3. This is likely secondary to steroids. 11. Hypertension: Held home Norvasc as BP has been a bit soft. Prophylaxis: Initially Heparin and IV Protonix VS,Fishbone, I+O VS, Fishbone, I+O Vital Signs Date Time Temp Pulse Resp B/P (MAP) Pulse Ox O2 Delivery O2 Flow Rate FiO2 04/07/17 12:23 20 04/06/17 21:00 Nasal Cannula 3.0 04/06/17 08:45 25 04/05/17 17:20 90 04/05/17 06:00 98 04/05/17 06:00 98.1 112/59 (76) I&O- Last 24 Hours up to 6 AM 04/08/17 06:00 Intake Total 240 ml Output Total 0 ml Balance 240 ml MORGAN WAITE MD Apr 07, 2017 13:48
[2017-04-07] MEDS: PRAMIPEXOLE 0.25 MG TAB PO SCH (22:21)
[2017-04-07] MEDS: traZODone 50 MG TAB PO SCH (22:21)
[2017-04-08] MEDS: IPRATROPIUM 0.5MG/ALBUTEROL 2.5MG INH SOL UD 3ML (DUONEB)(J7620) NEB SCH ×5 (02:00→23:00)
[2017-04-08] MEDS: LORazepam 2 MG/ML VIAL (J2060) IV PRN ×4 (06:48→15:34)
[2017-04-08] MEDS: SYMBICORT 160/4.5MCG INHALER 6GM INH SCH ×2 (07:49→21:00)
[2017-04-08] MEDS: predniSONE 20 MG TAB PO SCH (10:08)
[2017-04-08] MEDS: SCOPOLAMINE 1.5 MG TRANSDERMAL TOP SCH (10:09)
--- NOTE | 2017-04-08 12:58 | IPNPDOC ---
Text Note Date of Service The patient was seen on 04/08/17. NOTE Subjective: Sob and air hunger better with morphine and ativan. She is comfortable resting well. Did have some oral food. She remains DNR , DNI and GEOPHYSICAL E LOGGER awaiting discharge home with hospice versus hospice house. Discussed in detail with several family members 3 daughters, son and . Physical Exam: General: Awake, alert oriented, mild distress, HEENT: Normocephalic, atraumatic CV: Regular rate and rhythm Lungs: Decreased breath sounds in all lung garcia with use of accessory muscles Abd: Soft, nontender, nondistended Extremities: No edema Assessment and Plan: 76-year-old female with advanced COPD causing chronic hypoxic respiratory failure on 3L O2 chronically with mod pHTN and corpulmonale, history of NSTEMI and Takotsubo, systolic and diastolic CHF, hyperlipidemia, hypertension, anxiety, migraines, osteoporosis, restless leg syndrome who presented with shortness of breath and is admitted with respiratory acidosis and severe hypercarbic respiratory failure secondary to end stage COPD. Currently patient is in GEOPHYSICAL E LOGGER status. Please see below for summary of care prior to transitioning to GEOPHYSICAL E LOGGER. 1. Respiratory acidosis and severe hypercarbic respiratory failure: Attempted to treat underlying issue as below and with BiPAP. Greatly appreciate the assistance of Dr. Maynard. At present will give adequate morphine and ativan to control air hunger and anxiety and once comfortable with those will discontinue BIPAP. 2.End stage COPD exacerbation: Treated with Solu-Medrol, Perforomist, Pulmicort , scheduled and as needed DuoNeb's, home Spiriva, Zithromax and Rocephin. No improvement . will continue with duonebs only. 3. Elevated troponin: The patient has denied chest pain all along, however, she does have a new left bundle branch block on her EKG, and her troponin bumped to 2.05 before trending down. this is due to demand ischemia secondary to her severe respiratory distress and initial acidemia (patient arrived with a pH of 6.96). At this time, there is no role for anticoagulation, and there is no need to transfer the patient. Echo showed EF 45%, diastolic dysfunction, moderately severe pHTN, cor pulmonale. 4. Hyperkalemia: Resolved 5. Acute kidney injury: Her baseline creatinine appears to be close to 1 or at least in the low ones. Creatinine upon arrival was 1.51, jumped to 1.62 6. Chronic diastolic CHF with moderate pulmonary hypertension: There was no evidence of fluid overload . Lasix has been stopped 7. History of NSTEMI, hyperlipidemia: Initially continued on home aspirin, Plavix, statin. now off these medications; 8. Migraines: Initially continued home Topamax. 9. Restless leg syndrome: will continue mirapex. 10. Hyperglycemia: A1c is 6.3. This is likely secondary to steroids. 11. Hypertension: Held home Norvasc as BP has been a bit soft. Prophylaxis: Initially Heparin and IV Protonix VS,Fishbone, I+O VS, Fishbone, I+O Vital Signs Date Time Temp Pulse Resp B/P (MAP) Pulse Ox O2 Delivery O2 Flow Rate FiO2 04/07/17 22:00 Nasal Cannula 3.0 04/07/17 12:23 20 04/06/17 08:45 25 04/05/17 17:20 90 04/05/17 06:00 98 04/05/17 06:00 98.1 112/59 (76) I&O- Last 24 Hours up to 6 AM 04/09/17 06:00 Intake Total 240 ml Output Total 0 ml Balance 240 ml MORGAN WAITE MD Apr 08, 2017 12:58
[2017-04-08] MEDS: PRAMIPEXOLE 0.25 MG TAB PO SCH (20:52)
[2017-04-08] MEDS: traZODone 50 MG TAB PO SCH (20:52)
[2017-04-09] MEDS: LORazepam 2 MG/ML VIAL (J2060) IV PRN ×2 (06:42→09:43)
[2017-04-09] MEDS ORDERED: PRED10TA2 PO (07:13)
[2017-04-09] MEDS ORDERED: LORA1TAB12 PO (07:13)
[2017-04-09] MEDS ORDERED: ATRO1OPD PO (07:13)
[2017-04-09] MEDS ORDERED: MORP20SO3 PO (07:13)
[2017-04-09] MEDS: SYMBICORT 160/4.5MCG INHALER 6GM INH SCH (07:29)
[2017-04-09] MEDS: IPRATROPIUM 0.5MG/ALBUTEROL 2.5MG INH SOL UD 3ML (DUONEB)(J7620) NEB SCH (07:29)
[2017-04-09] MEDS: predniSONE 20 MG TAB PO SCH (09:46)
[2017-04-09] MEDS: MORPHINE 10MG/0.5ML ORAL CONCENTRATE SOLUTION U/D SL PRN (10:47)
--- NOTE | 2017-04-15 19:47 | DSES ---
DATE OF ADMISSION: 04/04/2017 DATE OF DISCHARGE: 04/09/2017 PRIMARY CARE PROVIDER: Zulema Jackson. DISCHARGE DIAGNOSES: 1. End stage chronic obstructive pulmonary disease with exacerbation. 2. Acute severe hypoxic and hypercarbic respiratory failure. 3. Patient was not able to be taken off Bi-level positive airway pressure (BiPAP). 4. Secondary elevation of troponin due to demand ischemia from her severe respiratory distress and acidemia. 5. Systolic and diastolic congestive heart failure with EF of 45%. 6. Severe pulmonary hypertension with cor pulmonale. 7. Restless leg syndrome. 8. Coronary artery disease with history of NSTEMI. 9. Hyperlipidemia. 10. Migraines. 11. Hypertension. 12. Steroid related hypoglycemia. 13. Osteoporosis. DISCHARGE MEDICATIONS: - Morphine sulfate concentrate 0.25 mL to 1 mL by mouth every 2 hours as needed and dyspnea - Lorazepam 1 mg tablet 1/2 tablet by mouth every 4 hours as needed anxiety or agitation - atropine sulfate 1% solution 1 to 2 drops by mouth every 2 hours as needed terminal solutions - Prednisone taper - DuoNeb Respule every 4 hours as needed shortness of breath - Symbicort 160/4.5 one puff inhalation twice a day - Spiriva two inhalation daily - trazodone 25 mg at bed time HOSPITAL COURSE: This is a 76-year-old female with end stage chronic obstructive pulmonary disease and chronic hypoxic respiratory failure presented to the emergency room with severe shortness of breath worsening over two days with a cough and nasal congestion. Patient is an active smoker. Patient also became lethargic so what brought to the emergency room. Patient was found to be in severe hypercarbic and hypoxic respiratory failure with a blood gas showing a pH of 6.96, PCO2 of 170, PO2 of 339 nonrebreather mask, patient was immediately placed on bi-level positive airway pressure (BiPAP). Patient's ABG improved after bi-level positive airway pressure (BiPAP), however patient's shortness of breath and symptoms did not improve. Patient continued to have persistent air hunger and patient was not being able to take off bi-level positive airway pressure (BiPAP). After two days patient continued to be in significant distress and was getting tired on bi-level positive airway pressure (BiPAP). At that time options were discussed to getting intubation versus comfort measures. Patient refused intubation and opted to be kept comfortable. Patient's decision was discussed with her son Edil Castro and patient was transitioned to comfort measures. Patient was started on Morphine and Ativan for anxiety and air hunger. With adequate Morphine and Ativan, patient's sensation of dyspnea improved and decreased, so patient was successfully taken off bi-level positive airway pressure (BiPAP). Hospice was consulted and patient was [facility]. ADDITIONAL DISCHARGE DIAGNOSIS: Acute metabolic encephalopathy due to hypercarbia. Initial acute kidney which had resolved. PHYSICAL EXAMINATION: Patient's pulse was regular, normal rate, respiratory rate was 33, pulse oximetry 90% with 3 liters. GENERAL: Patient awake, and cooperative, not in any acute distress. HEENT: Normocephalic, atraumatic. Moist mucous membranes. Anicteric eyes. CHEST: Bilateral very poor air entry. Crackles present. CARDIOVASCULAR: S1, S2 regular, systolic. Regular rhythm. No systolic murmur, rub or gallop present. ABDOMEN: Soft, non-tender. Bowel sounds present. EXTREMITIES: No edema. Patient was transferred to [facility] on 04/18/2017.
== END 2017-04-09 11:15 | disposition hospice, inpatient (51) | DRG 190 ==
LOC: M ED 22:11 → M ED INP 04-04 00:16 → M ICU 04-04 01:06 → M MSPAV 04-05 18:24 → M ICU 04-05 18:29 → M MSPAV 04-05 19:45
PROVIDERS: ADMIT Hospitalist; ATTEND Internal Medicine Nephrology
DX: J43.9 Emphysema, unspecified (principal); J96.22 Acute and chronic respiratory failure with hypercapnia; J96.21 Acute and chronic respiratory failure with hypoxia; G93.41 Metabolic encephalopathy; E87.2 Acidosis; N17.9 Acute kidney failure, unspecified; I50.32 Chronic diastolic (congestive) heart failure; I25.10 Atherosclerotic heart disease of native coronary artery without angina pectoris; I25.2 Old myocardial infarction; E78.5 Hyperlipidemia, unspecified; G25.81 Restless legs syndrome; G43.909 Migraine, unspecified, not intractable, without status migrainosus; I27.29 Other secondary pulmonary hypertension; E16.0 Drug-induced hypoglycemia without coma; M81.0 Age-related osteoporosis without current pathological fracture; Z79.899 Other long term (current) drug therapy; F17.200 Nicotine dependence, unspecified, uncomplicated; F41.1 Generalized anxiety disorder; Z79.82 Long term (current) use of aspirin; Z79.52 Long term (current) use of systemic steroids; I44.7 Left bundle-branch block, unspecified; I48.0 Paroxysmal atrial fibrillation; Z51.5 Encounter for palliative care